=== PATIENT | male | born 1940 | race Caucasian/White ===

== ENCOUNTER 2016-06-13 09:56 | Outpatient (CLI) | payer MEDICARE, OTHER ==
[2016-06-13] MEDS ORDERED: SINCALIDE IV ONE (12:59)
[2016-06-13] MEDS ORDERED: SODIUM CHLORIDE 0.9% IV ONE (12:59)
== END 2016-06-13 09:57 | disposition home or self-care (01) ==
DX: R10.11 Right upper quadrant pain (principal)
CPT/HCPCS: 76705; 78227; A9537

== ENCOUNTER 2016-06-13 12:48 | Outpatient (CLI) | payer MEDICARE, OTHER | END 2016-06-13 12:49 | disposition home or self-care (01) | DX: R10.11 Right upper quadrant pain (principal) ==

== ENCOUNTER 2016-07-05 11:14 | Outpatient (CLI) | payer MEDICARE, OTHER | END 2016-07-05 11:15 | DX: N40.1 Benign prostatic hyperplasia with lower urinary tract symptoms (principal) ==

== ENCOUNTER 2016-08-02 12:08 | Outpatient (CLI) | payer MEDICARE, OTHER ==
[2016-08-02] MEDS ORDERED: IOPAMIDOL-300 100 ML VIAL IVP ONE (14:09)
[2016-08-02] MEDS ORDERED: IOPAMIDOL-300 50 ML VIAL PO ONE (14:09)
== END 2016-08-02 12:09 | disposition home or self-care (01) ==
DX: K63.89 Other specified diseases of intestine (principal); R59.9 Enlarged lymph nodes, unspecified
CPT/HCPCS: 36415; 74177; 82565; Q9967

== ENCOUNTER 2016-08-22 10:06 | Outpatient (CLI) | payer MEDICARE, OTHER | END 2016-08-22 10:07 | disposition home or self-care (01) | DX: K42.9 Umbilical hernia without obstruction or gangrene (principal) ==

== ENCOUNTER 2016-09-07 12:32 | Outpatient (CLI) | payer MEDICARE, OTHER ==
[2016-09-07] MEDS ORDERED: IOPAMIDOL-300 50 ML VIAL PO ONE (14:47)
[2016-09-07] MEDS ORDERED: IOPAMIDOL-300 100 ML VIAL IVP ONE (14:47)
== END 2016-09-07 12:33 | disposition home or self-care (01) ==
DX: K59.39 Other megacolon (principal); Z98.890 Other specified postprocedural states
CPT/HCPCS: 74177; Q9967

== ENCOUNTER 2016-09-27 11:49 | Inpatient (IN) | payer MEDICARE, OTHER ==
[2016-09-27] MEDS ORDERED: SODIUM CHLORIDE 0.9% 1,000 ML IV ONE (12:33)
[2016-09-27] MEDS ORDERED: SODIUM CHLORIDE 0.9% 500 ML IV ONE (12:33)
--- NOTE | 2016-09-27 12:36 | ED Physician Documentation ---
History of Present Illness - Stated complaint Stated Complaint: NEEDS FLUID - Chief complaint Chief Complaint: General - History obtained from History obtained from: Patient, Family - History of Present Illness Timing: Today (75-year-old gentleman with history of alcoholic cardiomyopathy, last known EF of 40%, about 6 months ago per , also hypertension, maintained on a few antihypertensives. A few weeks ago he developed peritonitis do to perforation and was critically ill, he was at the surgeon's office today for routine postoperative visit and was noted to be hypotensive, 96 /60 or so and was referred here for further evaluation and treatment. He says he hasn't been eating or drinking well today but otherwise has no acute changes. He specifically denies cough, abdominal pain, nausea, chest pain. When asked him if he is short of breath he has to think about it for a moment but then says no. He says he has normal output into the ostomy, it has not been particularly dark or bloody. No fevers. He does have a worse voice ever since discharge week and a half ago. Yesterday his blood pressure was normal per the family.) Review of Systems Ten Systems: 10 systems reviewed and negative Constitutional: reports: Fatigue. 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) : Benign prostate hypertrophy HEENT: None Psych: None Musculoskeletal: Osteoarthritis Derm: Other - Past Surgical History Past Surgical History: Yes General: Colonoscopy, Other Ortho: Knee replacement Cardiovascular: Cardiac catheterization HEENT: Tonsil/Adenoidectomy - Present Medications Home Medications: Ambulatory Orders Medication Instructions Recorded Confirmed Atorvastatin [Lipitor] 10 mg PO QPM 03/17/16 09/27/16 Losartan [Cozaar] 50 mg PO BID 03/17/16 09/27/16 amLODIPine [Norvasc] 5 mg PO DAILY 03/17/16 09/27/16 Carvedilol [Coreg] 3.125 mg PO BID tablet 09/06/16 09/27/16 Omeprazole 20 mg PO QDAC #30 capsule. 09/18/16 09/27/16 - Allergies Allergies/Adverse Reactions: Allergies Allergy/AdvReac Type Severity Reaction Status Date / Time No Known Drug Allergies Allergy Verified 09/27/16 12:04 - Social History Does the pt smoke?: No Smoking Status: Former smoker - Family History Family history: reports: Non contributory - POLST Patient has POLST: No POLST Status: Full Code PD ED PE NORMAL - Vitals Vital signs reviewed: Yes - General General: Alert and oriented X 3, No acute distress - HEENT HEENT: PERRL, EOMI, Moist mucous membranes, Pharynx benign - Neck Neck: Supple, no meningeal sign, No bony TTP - Cardiac Cardiac: RRR, No murmur - Respiratory Respiratory: No respiratory distress, Other (crackles right base) - Abdomen Abdomen: Soft, Non tender, Other (ileostomy with normal-appearing output) - Back Back: No CVA TTP, No spinal TTP - Derm Derm: Normal color, Warm and dry - Extremities Extremities: No edema, No calf tenderness / cord - Neuro Neuro: Alert and oriented X 3, Normal speech - Psych Psych: Normal mood, Normal affect Results - Vitals Vitals: Vital Signs - 24 hr 09/27/16 09/27/16 11:57 12:50 Temperature 36 C L Heart Rate 78 68 Respiratory 16 20 Rate Blood Pressure 89/65 L 104/68 O2 Saturation 98 99 Oxygen O2 Source [] Room air O2 Source Room air - EKG (time done) 1235 Rate: Rate (enter#) (67) Rhythm: NSR [place]: Normal Intervals: Normal DC QRS: Normal Ischemia: Non specific changes (lateral flat t waves). No: ST elevation c/w ischemia Computer interpretation: Agree with computer - Labs Labs: Laboratory Tests 09/27/16 09/27/16 09/27/16 12:29 12:29 12:29 WBC 7.4 RBC 4.05 L Hgb 13.4 L Hct 38.2 L MCV 94.1 H MCH 32.9 H MCHC 35.0 RDW 14.2 Plt Count 547 H MPV 7.3 L Neut # 5.4 Lymph # 0.9 L Roberts # 0.9 Eos # 0.1 Baso # 0.1 Absolute Nucleated RBC 0.01 Nucleated RBCs 0.1 Sodium 123 L Potassium 6.0 H* Chloride 93 L Carbon Dioxide 18 L Anion Gap 12.0 BUN 58 H Creatinine 2.3 H Estimated GFR (MDRD) 28 L Glucose 97 Lactic Acid Calcium 9.8 Magnesium 2.0 Total Bilirubin 1.1 H AST 24 ALT 34 Alkaline Phosphatase 142 H Troponin I < 0.04 Total Protein 8.5 H Albumin 3.7 Globulin 4.8 H Albumin/Globulin Ratio 0.8 L Lipase 110 H 09/27/16 12:29 WBC RBC Hgb Hct MCV MCH MCHC RDW Plt Count MPV Neut # Lymph # Roberts # Eos # Baso # Absolute Nucleated RBC Nucleated RBCs Sodium Potassium Chloride Carbon Dioxide Anion Gap BUN Creatinine Estimated GFR (MDRD) Glucose Lactic Acid 1.6 Calcium Magnesium Total Bilirubin AST ALT Alkaline Phosphatase Troponin I Total Protein Albumin Globulin Albumin/Globulin Ratio Lipase - Rads (name of study) 2v chest Radiology: EMP read contemporaneously (NAD) PD MEDICAL DECISION MAKING - ED course ED course: He presents with moderately low blood pressures from clinic, by workup the seems to be related to dehydration. His ostomy output does not seem particularly high. He is modestly hyperkalemic, but this should respond to IV fluids and rehydration. Spoke with Dr. Sweeney for admission at 130 p.m. Departure - Departure Disposition: 66 [facility] DC/[place] Clinical Impression: Hyperkalemia, Acute renal injury, Dehydration Condition: Serious
[2016-09-27 12:41] LABS: BASOPHILS # (AUTO) 0.1 10^3/uL (0.0-0.1); EOSINOPHILS # (AUTO) 0.1 10^3/uL (0.0-0.7); EOSINOPHILS % (AUTO) 1.6 %; HCT - HEMATOCRIT 38.2 % (42.0-52.0); HGB - HEMOGLOBIN 13.4 g/dL (14.0-18.0); LYMPHOCYTES # (AUTO) 0.9 10^3/uL (1.5-3.5); LYMPHOCYTES % (AUTO) 11.5 %; MEAN CORPUSCULAR HEMOGLOBIN 32.9 pg (27.0-31.0); MEAN CORPUSCULAR VOLUME 94.1 fL (80.0-94.0); MEAN PLATELET VOLUME 7.3 fL (7.4-11.4); MONOCYTES # (AUTO) 0.9 10^3/uL (0.0-1.0); MONOCYTES % (AUTO) 12.7 %; NEUTROPHILS # (AUTO) 5.4 10^3/uL (1.5-6.6); NEUTROPHILS % (AUTO) 73.2 %; NUCLEATED RED BLOOD CELLS AUTO 0.1 /100WBC; RED BLOOD COUNT 4.05 10^6/uL (4.70-6.10); RED CELL DISTRIBUTION WIDTH 14.2 % (12.0-15.0); UNCORRECTED WHITE BLOOD COUNT 7.4 x10^3/uL; WHITE BLOOD COUNT 7.4 x10^3/uL (4.8-10.8)
[2016-09-27 12:57] LABS: ALBUMIN/GLOBULIN RATIO 0.8 (1.0-2.2); BILIRUBIN,TOTAL 1.1 mg/dL (0.2-1.0); CALCIUM 9.8 mg/dL (8.5-10.3); CREATININE 2.3 mg/dL (0.6-1.2); TOTAL PROTEIN 8.5 g/dL (6.7-8.2)
--- NOTE | 2016-09-27 13:25 | XRAY Preliminary Report ---
Exam: XR Chest 2 View PA/LAT IMPRESSION: Normal 2-view chest radiography. [facility] SITE ID: [id number]
--- NOTE | 2016-09-27 13:33 | XRAY Report ---
EXAM: CHEST RADIOGRAPHY EXAM DATE: 09/27/2016 01:11 PM. CLINICAL HISTORY: Hypertension, crackles right lung base. COMPARISON: 09/09/2016. CTA chest 09/08/2016. TECHNIQUE: 2 views. FINDINGS: Lungs/Pleura: No focal opacities evident. No pleural effusion. No pneumothorax. Normal volumes. Mediastinum: Heart and mediastinal contours are unremarkable. Other: None. IMPRESSION: Normal 2-view chest radiography. [facility] Referring Provider Line: [phone] SITE ID: [id number]
[2016-09-27] MEDS ORDERED: ONDANSETRON 4 MG/2 ML VIAL IVP PRN (13:46)
[2016-09-27] MEDS ORDERED: oxyCODONE 5 MG TABLET PO PRN ×2 (13:46)
[2016-09-27] MEDS ORDERED: SODIUM CHLORIDE FLUSH 0.9% 10 ML SYRINGE IVP PRN (13:46)
[2016-09-27] MEDS ORDERED: ACETAMINOPHEN 325 MG TABLET PO PRN (13:46)
[2016-09-27] MEDS ORDERED: SODIUM CHLORIDE 0.9% 1,000 ML IV SCH (14:00)
[2016-09-27] MEDS: PANTOPRAZOLE 40 MG TABLET PO SCH (15:36)
[2016-09-27] MEDS: SODIUM CHLORIDE FLUSH 0.9% 10 ML SYRINGE IVP SCH ×2 (15:37→21:06)
[2016-09-27 15:43] LABS: BILIRUBIN,URINE NEGATIVE (NEGATIVE)
[2016-09-27 15:45] LABS: UA CHARGE (STRIP ONLY) YES; UR CULTURE IF IND NOT INDICATED
--- NOTE | 2016-09-27 16:23 | HISTORY & PHYSICAL EXAMINATION ---
DATE OF ADMISSION: 09/27/2016 CHIEF COMPLAINT: Low blood pressure. IDENTIFYING INFORMATION: The patient is the primary source of history. His , Marjorie, and daughter, Popeye wade, were present to supply some additional information, and there was also information obtained in t he hand-off from Dr. Callaway, the emergency department physician, as well as personal review of past m edical records, which are summarized below and the patient's examination. All were used in evaluation of this person and preparation of this document. HISTORY OF PRESENT ILLNESS: The patient is a 75-year-old gentleman who comes in today because he had low blood pressure noted in his followup visit with the surgeon for his recent failed hemicolectomy a nd the resultant colostomy for an SBO caused by a carcinoid tumor. The patient admits he was not eati ng or drinking much in the last 24 hours. The patient denies any pain, says his colostomy has been wo rking okay. The patient did have a prolonged course in the hospital for 10 days after surgery to get his bowels functioning well to take food. REVIEW OF SYSTEMS: The patient's complete review of systems is negative except as noted in the HPI. T he patient has had a sore throat and some hoarse voice. He has had no fever, chills, cough, or conges tion. The patient has had no problems with urination as stated above, his colostomy has been working satisfactorily. PAST MEDICAL HISTORY: 1. Congestive heart failure with cardiomyopathy, etiology alcohol. 2. Hypertension. 3. High cholesterol. 4. Colon polyps. 5. 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 6. Benign prostatic hypertrophy. 7. Osteoarthritis. PAST SURGICAL HISTORY: Colonoscopy, knee replacement, cardiac catheterization, T and A, hemicolectomy and subsequent colostomy as noted above. ALLERGIES: NONE KNOWN. MEDICATIONS: 1. Atorvastatin 10 mg a day. 2. Losartan 50 mg b.i.d.. 3. Amlodipine 5 mg daily. 4. Coreg 3.125 mg., 2 in the morning, 1 in the evening. 5. Omeprazole 20 mg a day. PERSONAL AND SOCIAL HISTORY: The patient lives with his . The patient used to smoke, quit 45 year s ago, smoked a pack a day for 10 years. The patient was a heavy drinker, quit using alcohol a year a go. FAMILY HISTORY: Positive for coronary heart disease in a daughter. PHYSICAL EXAMINATION: GENERAL: This is a chronically ill-appearing male of stated age, under-nourished, no acute distress. VITAL SIGNS: 36, 78, 16, 89/65, 98% on room air. EYES: EOMs within normal limits, PERRL, nonicteric. MOUTH AND THROAT: Somewhat dry mucous membranes, white coated tongue, even, does not appear to be thr ush. NECK: Supple. Nontender. No lymphadenopathy, no thyromegaly, no bruits heard. CHEST WALL: Nontender. Symmetric. HEART: Sinus rhythm, no murmur, rubs, clicks heard. LUNGS: Clear to auscultation with fair air movement. ABDOMEN: Soft with colostomy left upper quadrant. The patient has no tenderness, rebound. A few bowel sounds are heard. Colostomy has 300-400 ml. EXTREMITIES: No edema. VASCULAR: Normal pulses to the posterior tibial. Capillary refill intact. NEURO: Cognition intact. Motor intact. Gait was not tested. LABORATORY DATA: The patient's white count 7.4, 13 and 38 hemoglobin and hematocrit, platelets are 54 7. His sodium 123, potassium 6.0, chloride 93, CO2 is 18, BUN 58, creatinine is 2.3. The patient's gl ucose 97, calcium 9.8, magnesium 2, bilirubin is 1.1. Normal liver enzymes. Alkaline phosphatase is m ildly elevated at 142, troponin less than 0.04. Albumin is 3.7. The patient's lactic acid is 1.6. The patient's chest x-ray does not show any vascular congestion or infiltrates. EKG shows normal sinus, 67, normal ND, normal QRS, some flattening in the ST waves. SUMMARY: The patient is a 75-year-old gentleman with past medical history significant for alcoholic c ardiomyopathy, carcinoid tumor of the stomach 8 years ago status post resection, hypertension, hyperl ipidemia, osteoarthritis, left knee replacement. He had a recent diagnosis of recurrence of his carci noid tumor and had to be repaired. The patient developed a breakdown in the anastomosis and required a colostomy. The patient today was found to be hypotensive and seen in the emergency department and f ound to be hyperkalemic, hyponatremic, dehydrated, ARF on CKD and is admitted to the ICU. DIAGNOSES: 1. Hyperkalemia. 2. Hyponatremia. 3. Recurrent carcinoid. 4. Small bowel obstruction status post hemicolectomy with a second surgery requiring colostomy due to breakdown and anastomosis. 5. Hypertension. 6. Hyperlipidemia. DISCUSSION/DECISION MAKIN. The patient's hyperkalemia will be treated with stopping his losartan, getting saline, low potassi um diet, monitoring potassium. 2. Hyponatremia will be treated with saline, oral fluids and recheck of his sodium. 3. The patient's carcinoid tumor will not be addressed directly at this time. 4. Colostomy, which will be maintained and monitored. 5. Hypertension, presently blood pressures is 120. Will be monitored, and medications will be restart ed on home medicines specifically his carvedilol. 6. The patient's hyperlipidemia will be controlled with his statin, atorvastatin has been use at home . HOSPITAL ISSUES: 1. CODE STATUS: HE IS FULL CODE. 2. Deep venous thrombosis prophylaxis, which will be reduced dose of Lovenox. 3. Diet will be low potassium. 4. Activity which will be with assistance, up in a chair, walking with a walker. 5. Tubes and Lines: He will have a peripheral IV at this time. 6. Hospital Status: The patient is inpatient 2 nights expected in order to determine what other inter ventions diagnostic and therapeutic will be needed to assure safe discharge from the patient's acute problems with his comorbidities. 7. Estimated length of stay, which is 2 nights. 8. Disposition, which is expected to return home. JOB #: [id number] EXT JOB #:[id number]
[2016-09-27] MEDS ORDERED: ATORVASTATIN 10 MG TABLET PO SCH (21:00)
[2016-09-27 22:26] LABS: CALCIUM 9.1 mg/dL (8.5-10.3); CREATININE 1.9 mg/dL (0.6-1.2); POTASSIUM 5.2 mmol/L (3.5-5.0)
[2016-09-28 05:54] LABS: BASOPHILS % (AUTO) 0.9 %; EOSINOPHILS # (AUTO) 0.2 10^3/uL (0.0-0.7); HCT - HEMATOCRIT 36.5 % (42.0-52.0); HGB - HEMOGLOBIN 12.2 g/dL (14.0-18.0); LYMPHOCYTES % (AUTO) 17.5 %; MEAN CORPUSCULAR HEMOGLOBIN 31.7 pg (27.0-31.0); MEAN CORPUSCULAR HGB CONC 33.4 g/dL (32.0-36.0); MEAN CORPUSCULAR VOLUME 94.7 fL (80.0-94.0); MEAN PLATELET VOLUME 7.6 fL (7.4-11.4); MONOCYTES # (AUTO) 0.8 10^3/uL (0.0-1.0); MONOCYTES % (AUTO) 14.3 %; NEUTROPHILS # (AUTO) 3.6 10^3/uL (1.5-6.6); NEUTROPHILS % (AUTO) 63.3 %; RED BLOOD COUNT 3.86 10^6/uL (4.70-6.10); RED CELL DISTRIBUTION WIDTH 14.2 % (12.0-15.0); UNCORRECTED WHITE BLOOD COUNT 5.6 x10^3/uL; WHITE BLOOD COUNT 5.6 x10^3/uL (4.8-10.8)
[2016-09-28 06:06] LABS: ALBUMIN/GLOBULIN RATIO 0.8 (1.0-2.2); BILIRUBIN,TOTAL 0.9 mg/dL (0.2-1.0); CALCIUM 9.2 mg/dL (8.5-10.3); CREATININE 1.4 mg/dL (0.6-1.2); POTASSIUM 5.1 mmol/L (3.5-5.0); TOTAL PROTEIN 6.8 g/dL (6.7-8.2)
[2016-09-28] MEDS: SODIUM CHLORIDE FLUSH 0.9% 10 ML SYRINGE IVP SCH (06:28)
[2016-09-28] MEDS: PANTOPRAZOLE 40 MG TABLET PO SCH (06:28)
--- NOTE | 2016-09-28 07:48 | Discharge Plan ---
Discharge Plan Disposition: 01 Home, Self Care Condition: Good Diet: Cardiac Activity Restrictions: Activity as Tolerated Shower Restrictions: No Driving Restrictions: No Weight Bearing: Full Weight Additional Instructions or Follow Up instructions: Please make an appt with Fernando Tolentino for followup in the next 7-10 days. Have a chem panel (blood draw) done there before your appt. Note that you will not be taking your losartan at this time. Also you will reduce your carvidilol to just in the evening. also follow a low poassium diet until you see Fernando Tolentino in the next week. Thank you Dr. Sweeney No Smoking: If you smoke, Please STOP! Call for help. Follow-up with: Fernando Tolentino PA-C [Primary Care Provider] - 1 Week
[2016-09-28] MEDS ORDERED: ENOXAPARIN 40 MG/0.4 ML SYRINGE SUBQ SCH (09:00)
[2016-09-28 09:49] VITALS: BP 125/73
--- NOTE | 2016-09-28 13:46 | DISCHARGE SUMMARY ---
DATE OF ADMISSION: 09/27/2016 DATE OF DISCHARGE: 09/28/2016 PRIMARY CARE PHYSICIAN: Fernando Tolentino. ADMISSION DIAGNOSES 1. Hyperkalemia. 2. Hyponatremia. 3. Recurrent carcinoid. 4. Small bowel obstruction, status post hemicolectomy with second surgery requiring colostomy due to breakdown and anastomosis. 5. Hypertension. 6. Hyperlipidemia. DISCHARGE DIAGNOSES 1. Hyperkalemia with marked improvement. 2. Hyponatremia with improvement. 3. Recurrent carcinoid. 4. Small bowel obstruction, status post hemicolectomy with second surgery requiring colostomy due to breakdown and anastomosis. 5. Hypertension, with good control. 6. Hyperlipidemia, on statin. CONSULTATIONS: None. SPECIAL PROCEDURES: None. HOSPITAL COURSE AND MANAGEMENT: Initial presentation and the patient's emergency department evaluation, as well as the hospitalist plan are well described in the history and physical, see copy of same. 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 He had a recent diagnosis of recurrence of his carcinoid tumor and had to be resected. The patient developed breakdown in anastomosis and required a colostomy. The patient today was found to be hypotensive, seen in the emergency department and found to be hyperkalemic, hyponatremic, dehydrated with ARF on CKD and admitted to the ICU. The patient's Losartan, potassium sparing antihypertensive was discontinued, as were his other medications because of him having a low blood pressure on admission. The patient improved overnight in all parameters. The patient was eating breakfast in a chair and then was ambulating with a cane and had made a remarkable recovery. Therefore, discharged home. PHYSICAL EXAMINATION ON THE DAY OF DISCHARGE GENERAL: This is an elderly male, frail, appearing older than stated age, no acute distress. VITAL SIGNS: 36.3, 72, 125/73, 12, 99 on room air. EYES: EOM within normal limits, PERRL, nonicteric. MOUTH AND THROAT: Moist mucous membranes. No other pathology noted. NECK: Supple. Nontender. No lymphadenopathy. CHEST: Normal sinus rhythm. No murmur, rubs, clicks. LUNGS: Clear, good air movement. ABDOMEN: Soft, nontender. There is output in the colostomy. VASCULAR: No lower extremity edema. Pulses 1+ posterior tibial bilaterally. SKIN: No suspicious lesions, dermatitis. NEUROLOGIC: Cognition intact. Cranial nerves intact. Motor normal. LABORATORY DATA: The patient has a sodium of 129, potassium 5.1, chloride 103, CO2 is 17. The patient's BUN is 48, creatinine is 1.4, glucose is 90, calcium 9.2. His white count is 5.6, 12 and 36 hemoglobin and hematocrit, with platelets of 464. The patient had a cortisol level because of the abnormal Na and KCL, which was normal at 20. The LFTs were normal. The patient's creatinine , it should be noted went from 2.3 to 1.4, and BUN went from 58 to 48 overnight. DISCHARGE ALLERGIES: NO KNOWN ALLERGIES. MEDICATIONS 1. He is to take carvedilol just 3.125 at night. 2. Atorvastatin 10 mg at night. 3. Amlodipine 5 mg a day. 4. Omeprazole 20 mg a day. 5. He is to stop his Cozaar. The patient is to see Freda Riley in the next week and have a chemistry panel done at that time and adjust his blood pressure medicines, which he said he was on higher doses and made him feel bad. He was told that his medicines are not just for blood pressure, but also to strengthen the heart since he had heart failure and cardiomyopathy. However, given the patient's symptomatology, an attempt to use medicines with a "go low go slow "approach would be warranted, herego the reduction of the carvedilol to 3.125 q.p.m., to be slowly increased if needed and to use an MODE or ARB to minimize potassium retention, yet get the benefits of cardiac improvement. Time spent in discharge activity is less than 30 minutes and he was examined on the day of discharge as noted above. JOB #: [id number] EXT JOB #:[id number] KATT
== END 2016-09-28 11:22 | disposition home or self-care (01) | DRG 641 ==
LOC: ED 11:49 → ICU 13:46
PROVIDERS: ADMIT Internal Medicine; ATTEND Internal Medicine
DX: E87.5 Hyperkalemia (principal); I42.6 Alcoholic cardiomyopathy; I13.0 Hypertensive heart and chronic kidney disease with heart failure and stage 1 through stage 4 chronic kidney disease, or unspecified chronic kidney disease; N17.9 Acute kidney failure, unspecified; K91.2 Postsurgical malabsorption, not elsewhere classified; E87.1 Hypo-osmolality and hyponatremia; E78.00 Pure hypercholesterolemia, unspecified; E86.0 Dehydration; N18.9 Chronic kidney disease, unspecified; I50.9 Heart failure, unspecified; D49.0 Neoplasm of unspecified behavior of digestive system; E78.5 Hyperlipidemia, unspecified; M19.90 Unspecified osteoarthritis, unspecified site; Z96.652 Presence of left artificial knee joint; N40.0 Benign prostatic hyperplasia without lower urinary tract symptoms; Z93.3 Colostomy status; Z79.899 Other long term (current) drug therapy; Z87.891 Personal history of nicotine dependence; Z90.3 Acquired absence of stomach [part of]; Z90.49 Acquired absence of other specified parts of digestive tract; Z86.010 Personal history of colon polyps; Z87.898 Personal history of other specified conditions
CPT/HCPCS: 36415; 71020; 80048; 80053; 81001; 81003; 82533; 83605; 83690; 83735; 84132; 84484; 85025; 87086; 87150; 93005; 93010; 96360; 99284; 99285

== ENCOUNTER 2016-10-04 14:36 | Outpatient (CLI) | payer MEDICARE, OTHER ==
[2016-10-04 19:16] LABS: BILIRUBIN,TOTAL 0.5 mg/dL (0.2-1.0); CALCIUM 9.5 mg/dL (8.5-10.3); CREATININE 1.5 mg/dL (0.6-1.2); POTASSIUM 5.5 mmol/L (3.5-5.0)
== END 2016-10-04 14:37 | disposition home or self-care (01) ==
LOC: LAB.N 14:36
PROVIDERS: ATTEND Physician Assistant
DX: E87.1 Hypo-osmolality and hyponatremia (principal); E87.5 Hyperkalemia
CPT/HCPCS: 36415; 80053

== ENCOUNTER 2016-10-10 11:14 | Outpatient (CLI) | payer MEDICARE, OTHER ==
[2016-10-10 13:03] LABS: ALBUMIN/GLOBULIN RATIO 1.1 (1.0-2.2); BILIRUBIN,TOTAL 0.7 mg/dL (0.2-1.0); CALCIUM 9.7 mg/dL (8.5-10.3); CREATININE 1.3 mg/dL (0.6-1.2); POTASSIUM 4.6 mmol/L (3.5-5.0); TOTAL PROTEIN 7.8 g/dL (6.7-8.2)
== END 2016-10-10 11:15 | disposition home or self-care (01) ==
LOC: LAB.N 11:14
PROVIDERS: ATTEND Physician Assistant
DX: E87.1 Hypo-osmolality and hyponatremia (principal); E87.5 Hyperkalemia
CPT/HCPCS: 36415; 80053

== ENCOUNTER 2016-10-17 09:25 | Outpatient (CLI) | payer MEDICARE, OTHER ==
[2016-10-17 14:03] LABS: ALBUMIN/GLOBULIN RATIO 1.1 (1.0-2.2); BILIRUBIN,TOTAL 0.6 mg/dL (0.2-1.0); CALCIUM 9.7 mg/dL (8.5-10.3); CREATININE 1.1 mg/dL (0.6-1.2); POTASSIUM 4.4 mmol/L (3.5-5.0); TOTAL PROTEIN 7.6 g/dL (6.7-8.2)
== END 2016-10-17 09:26 | disposition home or self-care (01) ==
LOC: LAB.N 09:25
PROVIDERS: ATTEND Physician Assistant
DX: E87.1 Hypo-osmolality and hyponatremia (principal)
CPT/HCPCS: 36415; 80053

== ENCOUNTER 2016-10-24 14:22 | Outpatient (CLI) | payer MEDICARE, OTHER ==
[2016-10-24 19:16] LABS: BILIRUBIN,TOTAL 0.2 mg/dL (0.2-1.0); CALCIUM 9.6 mg/dL (8.5-10.3); CREATININE 1.3 mg/dL (0.6-1.2); TOTAL PROTEIN 7.5 g/dL (6.7-8.2)
== END 2016-10-24 23:59 | disposition home or self-care (01) ==
LOC: LAB.N 14:22
PROVIDERS: ATTEND Physician Assistant
DX: E87.1 Hypo-osmolality and hyponatremia (principal)
CPT/HCPCS: 36415; 80053

== ENCOUNTER 2016-11-01 10:52 | Outpatient (CLI) | payer MEDICARE, OTHER ==
[2016-11-01 13:20] LABS: ALBUMIN/GLOBULIN RATIO 0.9 (1.0-2.2); BILIRUBIN,TOTAL 0.7 mg/dL (0.2-1.0); CALCIUM 9.8 mg/dL (8.5-10.3); CREATININE 1.5 mg/dL (0.6-1.2); POTASSIUM 4.8 mmol/L (3.5-5.0); TOTAL PROTEIN 8.1 g/dL (6.7-8.2)
== END 2016-11-01 10:53 | disposition home or self-care (01) ==
LOC: LAB.N 10:52
PROVIDERS: ATTEND Physician Assistant
DX: E87.1 Hypo-osmolality and hyponatremia (principal)
CPT/HCPCS: 36415; 80053

== ENCOUNTER 2016-11-08 11:46 | Outpatient (CLI) | payer MEDICARE, OTHER ==
[2016-11-08 19:18] LABS: BILIRUBIN,TOTAL 0.6 mg/dL (0.2-1.0); CALCIUM 9.8 mg/dL (8.5-10.3); CREATININE 1.3 mg/dL (0.6-1.2); POTASSIUM 4.6 mmol/L (3.5-5.0); TOTAL PROTEIN 7.9 g/dL (6.7-8.2)
== END 2016-11-08 11:47 | disposition home or self-care (01) ==
LOC: LAB.N 11:46
PROVIDERS: ATTEND Physician Assistant
DX: E87.1 Hypo-osmolality and hyponatremia (principal)
CPT/HCPCS: 36415; 80053

== ENCOUNTER 2016-11-14 11:05 | Outpatient (CLI) | payer MEDICARE, OTHER | END 2016-11-14 11:06 | disposition home or self-care (01) | DX: E87.1 Hypo-osmolality and hyponatremia (principal) ==

== ENCOUNTER 2016-11-14 14:23 | Outpatient (CLI) | payer MEDICARE, OTHER ==
--- NOTE | 2016-11-15 09:26 | XRAY Report ---
TWO-VIEW CHEST: 11/14/2016 CLINICAL INDICATION: Generalized lymphadenopathy. COMPARISON: 11/06/2016, chest CT 09/08/2016 FINDINGS: Frontal and lateral views of the chest demonstrate a normal cardiac silhouette. No defini te hilar or mediastinal lymphadenopathy is appreciated. The lungs again demonstrate minimal scattere d nodularity. No focal infiltrate, effusion, or pneumothorax. IMPRESSION: NO EVIDENCE OF THORACIC ADENOPATHY. MINIMAL SCATTERED NODULARITY IN THE LUNGS, NOT SIGN IFICANTLY CHANGED. :9 JOB #: [id number] EXT JOB #:[id number]
== END 2016-11-14 14:24 | disposition home or self-care (01) ==
LOC: DI.N 14:23
PROVIDERS: ATTEND Physician Assistant
DX: Z00.00 Encounter for general adult medical examination without abnormal findings (principal); R91.8 Other nonspecific abnormal finding of lung field; E87.1 Hypo-osmolality and hyponatremia
CPT/HCPCS: 36415; 71020; 80053

== ENCOUNTER 2016-11-22 10:29 | Outpatient (CLI) | payer MEDICARE, OTHER ==
[2016-11-22 13:40] LABS: ALBUMIN/GLOBULIN RATIO 1.1 (1.0-2.2); BILIRUBIN,TOTAL 0.6 mg/dL (0.2-1.0); CALCIUM 9.3 mg/dL (8.5-10.3); CREATININE 1.8 mg/dL (0.6-1.2); POTASSIUM 3.2 mmol/L (3.5-5.0); TOTAL PROTEIN 7.3 g/dL (6.7-8.2)
== END 2016-11-22 10:30 | disposition home or self-care (01) ==
LOC: LAB.N 10:29
PROVIDERS: ATTEND Physician Assistant
DX: E87.1 Hypo-osmolality and hyponatremia (principal)
CPT/HCPCS: 36415; 80053

== ENCOUNTER 2016-11-29 09:36 | Outpatient (CLI) | payer MEDICARE, OTHER ==
[2016-11-29 13:40] LABS: ALBUMIN/GLOBULIN RATIO 1.1 (1.0-2.2); BILIRUBIN,TOTAL 0.5 mg/dL (0.2-1.0); CALCIUM 9.3 mg/dL (8.5-10.3); CREATININE 1.7 mg/dL (0.6-1.2); POTASSIUM 3.7 mmol/L (3.5-5.0); TOTAL PROTEIN 6.8 g/dL (6.7-8.2)
== END 2016-11-29 09:37 ==
LOC: LAB.N 09:36
PROVIDERS: ATTEND Physician Assistant
DX: E87.1 Hypo-osmolality and hyponatremia (principal); E87.5 Hyperkalemia
CPT/HCPCS: 36415; 80053

== ENCOUNTER 2016-12-06 11:45 | Outpatient (CLI) | payer MEDICARE, OTHER ==
[2016-12-06 19:32] LABS: ALBUMIN/GLOBULIN RATIO 1.2 (1.0-2.2); BILIRUBIN,TOTAL 0.4 mg/dL (0.2-1.0); CALCIUM 9.5 mg/dL (8.5-10.3); CREATININE 1.8 mg/dL (0.6-1.2); POTASSIUM 4.4 mmol/L (3.5-5.0); TOTAL PROTEIN 7.3 g/dL (6.7-8.2)
== END 2016-12-06 11:46 | disposition home or self-care (01) ==
LOC: LAB.N 11:45
PROVIDERS: ATTEND Physician Assistant
DX: E87.1 Hypo-osmolality and hyponatremia (principal); E87.5 Hyperkalemia
CPT/HCPCS: 36415; 80053

== ENCOUNTER 2016-12-20 12:59 | Outpatient (CLI) | payer MEDICARE, OTHER ==
[2016-12-20 19:52] LABS: ALBUMIN/GLOBULIN RATIO 1.3 (1.0-2.2); BILIRUBIN,TOTAL 0.4 mg/dL (0.2-1.0); CALCIUM 9.2 mg/dL (8.5-10.3); CREATININE 1.6 mg/dL (0.6-1.2); POTASSIUM 4.4 mmol/L (3.5-5.0); TOTAL PROTEIN 7.2 g/dL (6.7-8.2)
== END 2016-12-20 13:00 | disposition home or self-care (01) ==
LOC: LAB.N 12:59
PROVIDERS: ATTEND Physician Assistant
DX: E87.1 Hypo-osmolality and hyponatremia (principal)
CPT/HCPCS: 36415; 80053

== ENCOUNTER 2016-12-27 15:45 | Outpatient (CLI) | payer MEDICARE, OTHER | END 2016-12-27 16:00 | disposition home or self-care (01) | LOC: RT.N 15:45 | PROVIDERS: ATTEND Physician Assistant | DX: R07.9 Chest pain, unspecified (principal) | CPT/HCPCS: 93005 ==

== ENCOUNTER 2016-12-28 08:48 | Outpatient (CLI) | payer MEDICARE, OTHER ==
[2016-12-28 13:32] LABS: ALBUMIN/GLOBULIN RATIO 1.2 (1.0-2.2); BILIRUBIN,TOTAL 0.6 mg/dL (0.2-1.0); CALCIUM 9.4 mg/dL (8.5-10.3); CREATININE 1.8 mg/dL (0.6-1.2); POTASSIUM 4.2 mmol/L (3.5-5.0); TOTAL PROTEIN 7.3 g/dL (6.7-8.2)
== END 2016-12-28 08:49 | disposition home or self-care (01) ==
LOC: LAB.N 08:48
PROVIDERS: ATTEND Physician Assistant
DX: R07.9 Chest pain, unspecified (principal); E87.1 Hypo-osmolality and hyponatremia
CPT/HCPCS: 36415; 80053; 84484

== ENCOUNTER 2017-01-02 16:56 | Outpatient (CLI) | payer MEDICARE, OTHER | END 2017-01-02 16:57 | disposition short-term general hospital (02) | LOC: EMS 16:56 | PROVIDERS: ATTEND Surgery | DX: R55 Syncope and collapse (principal); R09.89 Other specified symptoms and signs involving the circulatory and respiratory systems | CPT/HCPCS: A0425; A0427 ==

== ENCOUNTER 2017-01-10 09:38 | Outpatient (CLI) | payer MEDICARE, OTHER ==
[2017-01-10 14:07] LABS: ALBUMIN/GLOBULIN RATIO 1.2 (1.0-2.2); BILIRUBIN,TOTAL 0.5 mg/dL (0.2-1.0); CALCIUM 9.5 mg/dL (8.5-10.3); CREATININE 1.8 mg/dL (0.6-1.2); POTASSIUM 4.5 mmol/L (3.5-5.0); TOTAL PROTEIN 7.2 g/dL (6.7-8.2)
== END 2017-01-10 09:39 ==
LOC: LAB.N 09:38
PROVIDERS: ATTEND Physician Assistant
DX: E87.1 Hypo-osmolality and hyponatremia (principal); E87.5 Hyperkalemia
CPT/HCPCS: 36415; 80053

== ENCOUNTER 2017-01-17 13:32 | Outpatient (CLI) | payer MEDICARE, OTHER ==
[2017-01-17 19:15] LABS: CALCIUM 9.3 mg/dL (8.5-10.3); CREATININE 2.2 mg/dL (0.6-1.2); POTASSIUM 4.3 mmol/L (3.5-5.0)
== END 2017-01-17 13:33 | disposition home or self-care (01) ==
LOC: LAB.N 13:32
PROVIDERS: ATTEND Family Medicine
DX: E87.1 Hypo-osmolality and hyponatremia (principal)
CPT/HCPCS: 36415; 80048

== ENCOUNTER 2017-01-25 11:29 | Outpatient (CLI) | payer MEDICARE, OTHER ==
[2017-01-25 19:46] LABS: CALCIUM 9.3 mg/dL (8.5-10.3); CREATININE 2.2 mg/dL (0.6-1.2); POTASSIUM 3.8 mmol/L (3.5-5.0)
== END 2017-01-25 11:30 | disposition home or self-care (01) ==
LOC: LAB.N 11:29
PROVIDERS: ATTEND Family Medicine
DX: E87.1 Hypo-osmolality and hyponatremia (principal)
CPT/HCPCS: 36415; 80048

== ENCOUNTER 2017-02-20 08:28 | Outpatient (CLI) | payer MEDICARE, OTHER ==
[~2017-02-20 08:28] MED LIST: IOPAMIDOL-300 100 ML VIAL ONE; IOPAMIDOL-300 50 ML VIAL ONE
--- NOTE | 2017-02-20 17:54 | CT Report ---
CT ABDOMEN AND PELVIS WITHOUT CONTRAST: 02/20/2017 CLINICAL INDICATION: History of carcinoid tumor, followup. Axial CT images of the abdomen and pelvis were obtained with oral contrast only, due to patient's shannon al dysfunction. In accordance with CT protocol optimization, one or more of the following dose reduction techniques w ere utilized for this exam: automated exposure control, adjustment of mA and/or KV based on patient size, or use of iterative reconstructive technique. COMPARISON: 09/07/2016 Limited evaluation of the lung bases demonstrates emphysema. The liver, spleen, pancreas, kidneys, and adrenal glands appear unremarkable. The gallbladder is not dilated. No bowel dilatation, free gas, or free fluid is present. No abdominal adenopathy is seen. There is a new ostomy in the right lower quadrant. Colonic diverticulosis is noted, without CT evide nce of diverticulitis. No pelvic adenopathy or free fluid is present. Osseous structures demonstrate degenerative changes. IMPRESSION: NEW RIGHT LOWER QUADRANT OSTOMY. NO EVIDENCE OF SMALL BOWEL DILATATION. EMPHYSEMA. NO EVIDENCE OF METASTATIC DISEASE. JOB #: [id number] EXT JOB #:[id number]
[2017-02-20] MEDS ORDERED: IOPAMIDOL-300 50 ML VIAL PO ONE (18:06)
== END 2017-02-20 08:29 | disposition home or self-care (01) ==
LOC: DI 08:28
PROVIDERS: ATTEND Surgery
DX: Z85.060 Personal history of malignant carcinoid tumor of small intestine (principal); J43.9 Emphysema, unspecified
CPT/HCPCS: 36415; 74176; 82565; Q9967

== ENCOUNTER 2017-02-27 10:16 | Outpatient (CLI) | payer MEDICARE, OTHER ==
[2017-02-27 10:45] LABS: BASOPHILS % (AUTO) 0.7 %; EOSINOPHILS # (AUTO) 0.1 10^3/uL (0.0-0.7); EOSINOPHILS % (AUTO) 1.4 %; HCT - HEMATOCRIT 35.6 % (42.0-52.0); LYMPHOCYTES # (AUTO) 0.8 10^3/uL (1.5-3.5); LYMPHOCYTES % (AUTO) 12.9 %; MEAN CORPUSCULAR HEMOGLOBIN 33.2 pg (27.0-31.0); MEAN CORPUSCULAR HGB CONC 33.8 g/dL (32.0-36.0); MEAN CORPUSCULAR VOLUME 98.3 fL (80.0-94.0); MEAN PLATELET VOLUME 6.4 fL (7.4-11.4); MONOCYTES # (AUTO) 0.7 10^3/uL (0.0-1.0); MONOCYTES % (AUTO) 10.5 %; NEUTROPHILS # (AUTO) 4.7 10^3/uL (1.5-6.6); NEUTROPHILS % (AUTO) 74.5 %; RED BLOOD COUNT 3.62 10^6/uL (4.70-6.10); RED CELL DISTRIBUTION WIDTH 15.1 % (12.0-15.0); UNCORRECTED WHITE BLOOD COUNT 6.3 x10^3/uL; WHITE BLOOD COUNT 6.3 x10^3/uL (4.8-10.8)
[2017-02-27 10:54] LABS: ALBUMIN/GLOBULIN RATIO 1.4 (1.0-2.2); BILIRUBIN,TOTAL 0.5 mg/dL (0.2-1.0); CALCIUM 9.3 mg/dL (8.5-10.3); CREATININE 2.1 mg/dL (0.6-1.2); POTASSIUM 4.3 mmol/L (3.5-5.0); TOTAL PROTEIN 7.3 g/dL (6.7-8.2)
== END 2017-02-27 10:17 | disposition home or self-care (01) ==
LOC: LAB 10:16
PROVIDERS: ATTEND Nurse Anesthetist, Certified Registered
DX: Z01.818 Encounter for other preprocedural examination (principal); Z93.2 Ileostomy status; Z79.899 Other long term (current) drug therapy
CPT/HCPCS: 36415; 80053; 85025; 93005

== ENCOUNTER 2017-03-13 08:26 | Inpatient (IN) | payer MEDICARE, OTHER ==
[2017-03-13] MEDS ORDERED: LACTATED RINGERS 1,000 ML IV ONE ×2 (08:44→11:00)
[2017-03-13] MEDS ORDERED: cefOXitin 2 GM in SODIUM CHLORIDE 0.9% MINIBAG 100 ML IV ONE (09:00)
[2017-03-13] MEDS ORDERED: BUPIVACAINE 0.5% PF 30 ML VIAL SUBQ ONE (11:56)
[2017-03-13] MEDS ORDERED: SUCCINYLCHOLINE 200 MG/10 ML VIAL IVP ONE (12:00)
[2017-03-13] MEDS ORDERED: NEOSTIGMINE 1 MG/1 ML 10 ML MDV IVP ONE (12:00)
[2017-03-13] MEDS ORDERED: GLYCOPYRROLATE 1 MG/5 ML VIAL IVP ONE (12:00)
[2017-03-13] MEDS ORDERED: ePHEDrine 50 MG/ML VIAL IVP ONE (12:00)
[2017-03-13] MEDS ORDERED: ROCURONIUM 50 MG/5 ML VIAL IVP ONE (12:00)
[2017-03-13] MEDS ORDERED: PROPOFOL 200 MG/20 ML VIAL IVP ONE (12:00)
[2017-03-13] MEDS ORDERED: MIDAZOLAM 2 MG/2 ML VIAL IVP ONE (12:00)
[2017-03-13] MEDS ORDERED: DEXAMETHASONE 4 MG/ML VIAL IVP ONE (12:00)
[2017-03-13] MEDS ORDERED: LIDOCAINE-MPF 2% 5 ML VIAL IM ONE (12:00)
[2017-03-13] MEDS ORDERED: PHENYLEPHRINE 50 MG/5 ML VIAL IV ONE (12:00)
[2017-03-13] MEDS ORDERED: ONDANSETRON 4 MG/2 ML VIAL IVP ONE (12:00)
[2017-03-13] MEDS ORDERED: fentaNYL 100 MCG/2 ML VIAL IVP ONE (12:00)
[2017-03-13] MEDS ORDERED: PHENOL THROAT SPRAY 177 ML MM PRN (12:40)
[2017-03-13] MEDS ORDERED: PROCHLORPERAZINE 10 MG/2 ML VIAL IVP PRN (12:40)
--- NOTE | 2017-03-13 13:01 | OPERATIVE REPORT ---
Operative Report - General Admit Date: 03/13/17 Procedure Date: 03/13/17 Planned Procedure: SILS ileostomy takedown Pre-Op Diagnosis: Ileostomy Procedure Performed: SILS ileostomy takedown Post Op Diagnosis: Ileostomy - Procedure Note Primary Surgeon: Parag Cantu MD Secondary Surgeon: Brando Borges MD Anesthesia Provider: Stephen Amador Anesthesia Technique: General ET tube, Local (30 mL 1/2% marcaine) IV Fluids (mL): 1,800 Estimated Blood Loss (mL): 50 Urine Output (mL): 150 Complications: None. - Other Other Information/Narrative: OPERATIVE DESCRIPTION/REPORT: After verbal and written informed consent was obtained detailing the risks of infection, bleeding with all of its risks including transfusion, and the patient was brought to the operative suite and placed initially in the supine position on the operating room table taking care to pad all extremities. Monitoring devices were applied along with TEDs and pneumatic compressive stockings. The ileostomy was sutured closed. Care was taken to avoid pressure points. Prophylactic antibiotics were given. An adequate level of general endotracheal anesthesia was established by Stephen Amador. The abdomen was then prepped with ChloraPrep and draped in a sterile fashion. A "time in" then confirmed that the patient was identified with 3 identifiers (name, date and medical record number), the history and physical was in the chart, the signed consent confirming the procedure was in the chart, the patient was in the correct position, the aforementioned prophylactic measures were in place or given, we had the correct personnel and equipment to complete the procedure and that anesthesia, surgery and nursing were given an opportunity to express any concerns. An elliptical incision was made encompassing the terminal ileum and dissection down to the ileostomy and the fascia was completed using Bovie electrocautery. Subcutaneous adhesions were taken again using Bovie electrocautery until the fascia was clearly identified around the ileum. Adhesions of the ileum to the fascia were similarly taken using Bovie electrocautery until I was able to enter the abdomen proper. Intraloop adhesions and adhesions to the anterior abdominal wall were taken down using Bovie electrocautery. This was done until I was able to place the GelPort in position without the ring impinging on any bowel. The ileostomy was excised using an application of the 75 JEANIE stapler to prevent from putting the old ileostomy into the abdomen. Two 5 mm ports and one 10 mm port were placed in the Gelport in a triangular fashion, and the Gelport was attached to the ring. The abdominal cavity was insufflated with carbon dioxide to steady-state pressure of 12 mmHg. At this point, the patient was placed in reverse Trendeleberg position with the left lateral decubitus tilt. Adhesiolysis was performed laparoscopically and the Gardner's pouch was found. This was aided by the placement of Prolene stitches previously. The colon was freed enough that it could be brought up in to the GelPort. Once I was satisfied that the colon could be anastamosed without any tension the terminal ileum as well as the colon were brought up through the opening in the GelPort ring. 2 2-0 Vicryl sutures were placed in the antimesenteric border of the ileum and colon to line up the anastomosis. The staple line of the ileum and the colon were then cut with heavy scissors and a 75 JEANIE stapler was placed through each opening, applied, and fired this creating the ileocolostomy. The stapler was removed and reloaded. The combined opening that the stapler had been removed from was then closed using 2 other applications of the JEANIE stapler. The staple line was then oversewn using 3-0 Vicryl sutures in a Lembert fashion. The anastamosis was visually checked for a leak and there was none. The anastomosis was palpated and noted to be widely patent. There was no bleeding noted. The abdomen was copiously irrigated with 1 L of warm sterile saline. The Gelport was removed and the posterior fascia and peritoneum were closed using a running looped 0 PDS. The anterior fascia was used using a running 0 PDS suture. The peritoneal, fascial and skin levels were injected with 1/2% Marcaine under direct vision. Meticulous hemostasis was obtained using Bovie electrocautery. The subcutaneous tissues were approximated using interrupted 0 Vicryl sutures. The skin incision was approximated with interrupted mattress 3- 0 Prolene sutures. At this point a time out was performed that confirmed that all the counts were correct, the procedure that was performed, the blood loss, the IV fluids administered, and the patients condition. The prep was washed off and Benzoin and steristrips were applied. Having tolerated the procedure well, the patient was subsequently extubated and taken to recovery room in good and stable condition.
[2017-03-13] MEDS ORDERED: fentaNYL 100 MCG/2 ML VIAL ONE (13:33)
[2017-03-13] MEDS: SODIUM CHLORIDE FLUSH 0.9% 10 ML SYRINGE IVP SCH ×2 (13:40→21:30)
[2017-03-13] MEDS: D5NS W/20 MEQ KCL 1,000 ML IV SCH (13:59)
[2017-03-13] MEDS: ACETAMINOPHEN 1,000 MG/100 ML 100 ML IV SCH ×2 (14:00→19:00)
[2017-03-13] MEDS: HYDROmorphone 0.5 MG/0.5 ML SYRINGE IVP PRN (14:02)
[2017-03-13] MEDS ORDERED: PIPERACILLIN/TAZOBACTAM 3.375 GM in SODIUM CHLORIDE 0.9% MINIBAG 100 ML IV SCH (15:00)
[2017-03-13] MEDS: METOPROLOL SUCCINATE 25 MG TABLET PO SCH (21:29)
[2017-03-14] MEDS: ACETAMINOPHEN 1,000 MG/100 ML 100 ML IV SCH ×4 (00:19→18:33)
[2017-03-14 05:11] LABS: BASOPHILS % (AUTO) 0.1 %; HCT - HEMATOCRIT 31.4 % (42.0-52.0); HGB - HEMOGLOBIN 10.5 g/dL (14.0-18.0); LYMPHOCYTES # (AUTO) 0.4 10^3/uL (1.5-3.5); LYMPHOCYTES % (AUTO) 2.8 %; MEAN CORPUSCULAR HEMOGLOBIN 33.7 pg (27.0-31.0); MEAN CORPUSCULAR HGB CONC 33.6 g/dL (32.0-36.0); MEAN CORPUSCULAR VOLUME 100.5 fL (80.0-94.0); MONOCYTES # (AUTO) 1.3 10^3/uL (0.0-1.0); MONOCYTES % (AUTO) 9.5 %; NEUTROPHILS # (AUTO) 11.8 10^3/uL (1.5-6.6); NEUTROPHILS % (AUTO) 87.6 %; RED BLOOD COUNT 3.13 10^6/uL (4.70-6.10); UNCORRECTED WHITE BLOOD COUNT 13.5 x10^3/uL; WHITE BLOOD COUNT 13.5 x10^3/uL (4.8-10.8)
[2017-03-14 05:24] LABS: ALBUMIN/GLOBULIN RATIO 1.1 (1.0-2.2); BILIRUBIN,TOTAL 0.6 mg/dL (0.2-1.0); CALCIUM 8.5 mg/dL (8.5-10.3); POTASSIUM 4.6 mmol/L (3.5-5.0)
[2017-03-14] MEDS: SODIUM CHLORIDE FLUSH 0.9% 10 ML SYRINGE IVP SCH ×3 (07:00→20:36)
[2017-03-14] MEDS: PANTOPRAZOLE 40 MG VIAL IVP SCH (07:00)
[2017-03-14] MEDS: METOPROLOL SUCCINATE 25 MG TABLET PO SCH ×2 (08:56→20:39)
[2017-03-14] MEDS: AMIODARONE 200 MG TABLET PO SCH (09:19)
[2017-03-14] MEDS: ENOXAPARIN 40 MG/0.4 ML SYRINGE SUBQ SCH (09:19)
[2017-03-14] MEDS: HYDROmorphone 0.5 MG/0.5 ML SYRINGE IVP PRN ×4 (11:34→19:12)
[2017-03-14] MEDS: D5NS W/20 MEQ KCL 1,000 ML IV SCH (11:34)
[2017-03-14] MEDS: SODIUM CHLORIDE FLUSH 0.9% 10 ML SYRINGE IVP PRN ×2 (16:09→19:12)
[2017-03-15] MEDS: HYDROmorphone 0.5 MG/0.5 ML SYRINGE IVP PRN ×10 (00:08→23:58)
[2017-03-15] MEDS: ACETAMINOPHEN 1,000 MG/100 ML 100 ML IV SCH ×4 (00:37→18:52)
--- NOTE | 2017-03-15 00:43 | PROVIDER PROGRESS NOTE ---
Subjective - General Admit Date: 03/13/17 Procedure Date: 03/13/17 Post Op Days: 2 Procedure Performed: SILS ileostomy takedown - Review of Systems Wound/Incisions: positive: Dressing dry and intact General: positive: No symptoms. negative: Fever, Malaise, Chills HEENT: positive: No symptoms Pulmonary: positive: No symptoms Cardiovascular: positive: No symptoms Gastrointestinal: positive: Abdominal pain (Very mild.), Other (Some belching.) . negative: Nausea, Vomiting, Flatus, Constipation, Diarrhea Genitourinary: positive: No symptoms (Gunter was supposed to be removed in the AM and was not removed until the afternoon.) Musculoskeletal: positive: Shoulder pain (LEFT shoulder pain likely due to residual gas in the abdomen.) Skin: positive: No symptoms Psychiatric: positive: No symptoms Objective - Patient Data Reviewed Vital Signs: Yes Vital Signs: Vital Signs x48h Temp Pulse Pulse Resp BP Pulse Ox 03/14/17 20:38 58 L 119/74 03/14/17 19:38 36.8 C 60 18 113/65 98 Weight: Weight 03/13/17 03/14/17 03/15/17 23:59 23:59 23:59 Weight (kg) 65 kg Intake & Output: Intake and Output Totals x24h 03/13/17 03/14/17 03/15/17 23:59 23:59 23:59 Intake Total 229.663 9470.667 Output Total 775 1425 Balance -191.498 4429.667 - Lab Results Lab Results: 03/14/17 04:57 03/14/17 04:57 Other Lab Results: Lab Results x24hrs 03/14/17 03/14/17 Range/Units 04:57 04:57 WBC 13.5 H (4.8-10.8) x10^3/uL RBC 3.13 L (4.70-6.10) 10^6/uL Hgb 10.5 L (14.0-18.0) g/dL Hct 31.4 L (42.0-52.0) % MCV 100.5 H (80.0-94.0) fL MCH 33.7 H (27.0-31.0) pg MCHC 33.6 (32.0-36.0) g/dL RDW 15.0 (12.0-15.0) % Plt Count 194 (130-450) 10^3/uL MPV 7.0 L (7.4-11.4) fL Neut # 11.8 H (1.5-6.6) 10^3/uL Lymph # 0.4 L (1.5-3.5) 10^3/uL [place] # 1.3 H (0.0-1.0) 10^3/uL Eos # 0.0 (0.0-0.7) 10^3/uL Baso # 0.0 (0.0-0.1) 10^3/uL Absolute Nucleated RBC 0.00 x10^3/uL Nucleated RBC % 0.0 /100WBC Sodium 135 (135-145) mmol/L Potassium 4.6 (3.5-5.0) mmol/L Chloride 110 (101-111) mmol/L Carbon Dioxide 17 L (21-32) mmol/L Anion Gap 8.0 (6-13) BUN 34 H (6-20) mg/dL Creatinine 2.0 H (0.6-1.2) mg/dL Estimated GFR (MDRD) 33 L (>89) Glucose 127 H (70-100) mg/dL Calcium 8.5 (8.5-10.3) mg/dL Total Bilirubin 0.6 (0.2-1.0) mg/dL AST 21 (10-42) IU/L ALT 24 (10-60) IU/L Alkaline Phosphatase 53 (42-121) IU/L Total Protein 6.0 L (6.7-8.2) g/dL Albumin 3.1 L (3.2-5.5) g/dL Globulin 2.9 (2.1-4.2) g/dL Albumin/Globulin Ratio 1.1 (1.0-2.2) - Current Medications Current Medications: Current Medications Generic Name Dose Route Start Last Admin Trade Name Freq PRN Reason Stop Dose Admin Amiodarone HCl 200 mg 03/14/17 09:00 03/14/17 09:19 Pacerone PO 200 mg DAILY MATTHIEU Administration Enoxaparin Sodium 40 mg 03/14/17 09:00 03/14/17 09:19 Lovenox SUBQ 40 mg DAILY MATTHIEU Administration Hydromorphone HCl 0.5 mg 03/13/17 12:40 03/15/17 00:08 Dilaudid Inj Syringe IVP 0.5 mg Q1H PRN Administration PAIN Potassium Chloride/Dextrose/Sod Cl 1,000 mls @ 50 mls/hr 03/13/17 13:00 03/14 22:12 IV 50 mls/hr .Q20H MATTHIEU Infusion Acetaminophen 100 mls @ 400 mls/hr 03/13/17 13:00 03/15/17 00:37 Ofirmev IV 400 mls/hr Q6H MATTHIEU Administration Metoprolol Succinate 25 mg 03/13/17 21:00 03/14/17 20:39 Toprol Xl PO Not Given BID MATTHIEU Pantoprazole Sodium 40 mg 03/14/17 07:00 03/14/17 07:00 Protonix IVP 40 mg QDAC MATTHIEU Administration Sodium Chloride 10 ml 03/13/17 14:00 03/14/17 20:36 Normal Saline Flush 0.9% IVP Not Given Q8HR MATTHIEU Sodium Chloride 10 ml 03/13/17 12:40 03/14/17 19:12 Normal Saline Flush 0.9% IVP 10 ml PRN PRN Administration NEEDED PER PROVIDER ORDERS - Physical Exam Wound/Incisions: positive: Dressing dry and intact General Appearance: positive: No acute distress Eyes Bilateral: positive: No lid inflammation, Conjunctivae nml, No scleral icterus Neck: positive: Trachea midline Respiratory: positive: Chest non-tender, No respiratory distress, Breath sounds nml Cardiovascular: positive: Regular rate & rhythm Abdomen: positive: Tenderness (Mild incisional.) Skin: positive: Color nml Extremities: positive: Non-tender, Full ROM, Nml appearance Neurologic/Psychiatric: positive: Oriented x3 Impression/Plan - Problem List Problem List: D1 s/p SILS takedown of ileostomy. ERAS protocol in place with minimized IVF, patient taking oral fluids within the first 24 hours, advanced ambulation and removal of Gunter done. No extermination inspector antibiotics. Preoperative intake of carbohydrates and proteins done. Will remove dressing in AM. Patient to continue ambulating at least TID. If no nausea/vomiting in AM consider advancing diet. Will check labs in AM.
[2017-03-15] MEDS: SODIUM CHLORIDE FLUSH 0.9% 10 ML SYRINGE IVP SCH ×3 (04:20→20:35)
[2017-03-15 05:25] LABS: BASOPHILS % (AUTO) 0.3 %; EOSINOPHILS % (AUTO) 0.6 %; HCT - HEMATOCRIT 32.5 % (42.0-52.0); HGB - HEMOGLOBIN 10.8 g/dL (14.0-18.0); LYMPHOCYTES # (AUTO) 0.7 10^3/uL (1.5-3.5); LYMPHOCYTES % (AUTO) 7.9 %; MEAN CORPUSCULAR HEMOGLOBIN 33.7 pg (27.0-31.0); MEAN CORPUSCULAR HGB CONC 33.2 g/dL (32.0-36.0); MEAN CORPUSCULAR VOLUME 101.6 fL (80.0-94.0); MEAN PLATELET VOLUME 7.2 fL (7.4-11.4); MONOCYTES # (AUTO) 0.8 10^3/uL (0.0-1.0); NEUTROPHILS # (AUTO) 6.8 10^3/uL (1.5-6.6); NEUTROPHILS % (AUTO) 82.2 %; RED BLOOD COUNT 3.19 10^6/uL (4.70-6.10); RED CELL DISTRIBUTION WIDTH 15.2 % (12.0-15.0); UNCORRECTED WHITE BLOOD COUNT 8.3 x10^3/uL; WHITE BLOOD COUNT 8.3 x10^3/uL (4.8-10.8)
[2017-03-15 05:31] LABS: BILIRUBIN,TOTAL 0.8 mg/dL (0.2-1.0); CALCIUM 8.2 mg/dL (8.5-10.3); CREATININE 1.6 mg/dL (0.6-1.2); POTASSIUM 4.2 mmol/L (3.5-5.0); TOTAL PROTEIN 5.9 g/dL (6.7-8.2)
[2017-03-15] MEDS: PANTOPRAZOLE 40 MG VIAL IVP SCH (06:57)
[2017-03-15] MEDS: D5NS W/20 MEQ KCL 1,000 ML IV SCH (06:57)
[2017-03-15] MEDS: SODIUM CHLORIDE FLUSH 0.9% 10 ML SYRINGE IVP PRN ×5 (06:58→23:59)
[2017-03-15] MEDS: METOPROLOL SUCCINATE 25 MG TABLET PO SCH ×2 (09:02→20:56)
[2017-03-15] MEDS: AMIODARONE 200 MG TABLET PO SCH (09:02)
[2017-03-15] MEDS: ENOXAPARIN 40 MG/0.4 ML SYRINGE SUBQ SCH (09:02)
[2017-03-16] MEDS: ACETAMINOPHEN 1,000 MG/100 ML 100 ML IV SCH ×4 (01:06→19:49)
[2017-03-16] MEDS: D5NS W/20 MEQ KCL 1,000 ML IV SCH ×2 (05:03→20:51)
[2017-03-16] MEDS: HYDROmorphone 0.5 MG/0.5 ML SYRINGE IVP PRN ×5 (05:04→23:45)
[2017-03-16] MEDS: SODIUM CHLORIDE FLUSH 0.9% 10 ML SYRINGE IVP SCH ×3 (06:52→20:42)
[2017-03-16] MEDS: PANTOPRAZOLE 40 MG VIAL IVP SCH (06:52)
[2017-03-16] MEDS: AMIODARONE 200 MG TABLET PO SCH (08:27)
[2017-03-16] MEDS: ENOXAPARIN 40 MG/0.4 ML SYRINGE SUBQ SCH (08:27)
[2017-03-16] MEDS: METOPROLOL SUCCINATE 25 MG TABLET PO SCH ×2 (08:27→20:43)
--- NOTE | 2017-03-16 16:37 | PROVIDER PROGRESS NOTE ---
Subjective - General Admit Date: 03/13/17 Procedure Date: 03/13/17 Post Op Days: 3 Procedure Performed: SILS ileostomy takedown - Review of Systems Wound/Incisions: positive: Dressing dry and intact General: positive: No symptoms. negative: Fever, Malaise, Chills HEENT: positive: No symptoms Pulmonary: positive: No symptoms Cardiovascular: positive: No symptoms Gastrointestinal: positive: Abdominal pain (Sightly increased today compared to yesterday.), Other (Some belching, decreased appetite today.). negative: Nausea , Vomiting, Flatus, Constipation, Diarrhea Genitourinary: positive: No symptoms (Gunter was supposed to be removed in the AM and was not removed until the afternoon.) Musculoskeletal: positive: Shoulder pain (LEFT shoulder pain likely due to residual gas in the abdomen.) Skin: positive: No symptoms Psychiatric: positive: No symptoms Objective - Patient Data Reviewed Vital Signs: Yes Vital Signs: Vital Signs x48h Temp Pulse Resp BP Pulse Ox 03/16/17 13:09 36.3 C L 60 16 137/91 H 97 03/16/17 09:00 36.5 C 59 L 18 141/86 H 98 Intake & Output: Intake and Output Totals x24h 03/14/17 03/15/17 03/16/17 23:59 23:59 23:59 Intake Total 3731.667 3917.666 1055.834 Output Total 1425 1750 895 Balance 2306.667 2167.666 160.834 - Lab Results Lab Results: 03/15/17 04:44 03/15/17 04:44 - Current Medications Current Medications: Current Medications Generic Name Dose Route Start Last Admin Trade Name Freq PRN Reason Stop Dose Admin Amiodarone HCl 200 mg 03/14/17 09:00 03/16/17 08:27 Pacerone PO 200 mg DAILY MATTHIEU Administration Enoxaparin Sodium 40 mg 03/14/17 09:00 03/16/17 08:27 Lovenox SUBQ 40 mg DAILY MATTHIEU Administration Hydromorphone HCl 0.5 mg 03/13/17 12:40 03/16/17 15:14 Dilaudid Inj Syringe IVP 0.5 mg Q1H PRN Administration PAIN Potassium Chloride/Dextrose/Sod Cl 1,000 mls @ 50 mls/hr 03/13/17 13:00 03/16 05:03 IV 50 mls/hr .Q20H MATTHIEU Administration Acetaminophen 100 mls @ 400 mls/hr 03/13/17 13:00 03/16/17 13:20 Ofirmev IV Infused Q6H MATTHIEU Infusion Metoprolol Succinate 25 mg 03/13/17 21:00 03/16/17 08:27 Toprol Xl PO 25 mg BID MATTHIEU Administration Pantoprazole Sodium 40 mg 03/14/17 07:00 03/16/17 06:52 Protonix IVP 40 mg QDAC MATTHIEU Administration Sodium Chloride 10 ml 03/13/17 14:00 03/16/17 13:07 Normal Saline Flush 0.9% IVP Not Given Q8HR MATTHIEU Sodium Chloride 10 ml 03/13/17 12:40 03/15/17 23:59 Normal Saline Flush 0.9% IVP 10 ml PRN PRN Administration NEEDED PER PROVIDER ORDERS - Physical Exam Wound/Incisions: positive: Healing well (Slight swelling improved.) General Appearance: positive: No acute distress Eyes Bilateral: positive: No lid inflammation, Conjunctivae nml, No scleral icterus Neck: positive: Trachea midline Respiratory: positive: Chest non-tender, No respiratory distress, Breath sounds nml Cardiovascular: positive: Regular rate & rhythm Abdomen: positive: Tenderness (Incisional.), Abnml bowel sounds (Slightly decreased.) Skin: positive: Color nml Extremities: positive: Nml appearance Neurologic/Psychiatric: positive: Oriented x3 Impression/Plan - Problem List Problem List: POD #3 s/p SILS ileostomy takedown. Still no bowel function. Awaiting bowel function. Pain controlled. Patient feels bowel function is imminent. Patient requested dietary consult - will order. Patient has ambulated in halls twice today and attempting 4 times.
[2017-03-16] MEDS: ONDANSETRON 4 MG/2 ML VIAL IVP PRN (18:00)
[2017-03-17] MEDS: ACETAMINOPHEN 1,000 MG/100 ML 100 ML IV SCH ×4 (01:10→19:54)
[2017-03-17] MEDS: PANTOPRAZOLE 40 MG VIAL IVP SCH (06:02)
[2017-03-17] MEDS: SODIUM CHLORIDE FLUSH 0.9% 10 ML SYRINGE IVP SCH ×3 (06:03→19:54)
[2017-03-17] MEDS: SODIUM CHLORIDE FLUSH 0.9% 10 ML SYRINGE IVP PRN ×4 (06:03→23:49)
[2017-03-17] MEDS: HYDROmorphone 0.5 MG/0.5 ML SYRINGE IVP PRN ×6 (07:59→23:48)
[2017-03-17] MEDS: AMIODARONE 200 MG TABLET PO SCH (08:39)
[2017-03-17] MEDS: METOPROLOL SUCCINATE 25 MG TABLET PO SCH ×2 (08:39→19:54)
[2017-03-17] MEDS: ENOXAPARIN 40 MG/0.4 ML SYRINGE SUBQ SCH (08:39)
--- NOTE | 2017-03-17 12:19 | PROVIDER PROGRESS NOTE ---
Subjective - General Admit Date: 03/13/17 Procedure Date: 03/13/17 Post Op Days: 4 Procedure Performed: SILS ileostomy takedown - Review of Systems Wound/Incisions: positive: Healing well (Slight swelling improved.) General: positive: No symptoms. negative: Fever, Malaise, Chills HEENT: positive: No symptoms Pulmonary: positive: No symptoms Cardiovascular: positive: No symptoms Gastrointestinal: positive: Nausea (Started today.), Abdominal pain (Left side feels fine located more the the right side (site of previous ileostomy).), Other (Some belching, decreased appetite today.). negative: Vomiting, Flatus, Constipation, Diarrhea Genitourinary: positive: No symptoms (Gunter was supposed to be removed in the AM and was not removed until the afternoon.) Musculoskeletal: positive: Shoulder pain (LEFT shoulder pain likely due to residual gas in the abdomen.) Skin: positive: No symptoms Psychiatric: positive: No symptoms Objective - Patient Data Reviewed Vital Signs: Yes Vital Signs: Vital Signs x48h Temp Pulse Resp BP Pulse Ox 03/17/17 12:04 37.4 C 67 22 147/88 H 94 03/17/17 08:10 37.2 C 65 20 143/89 H 92 03/17/17 05:00 37.0 C 60 18 136/81 H 96 Intake & Output: Intake and Output Totals x24h 03/15/17 03/16/17 03/17/17 23:59 23:59 23:59 Intake Total 3917.666 5761.437 4169 Output Total 1750 1370 185 Balance 2167.666 907.963 0477 - Lab Results Lab Results: 03/15/17 04:44 03/15/17 04:44 - Current Medications Current Medications: Current Medications Generic Name Dose Route Start Last Admin Trade Name Freq PRN Reason Stop Dose Admin Amiodarone HCl 200 mg 03/14/17 09:00 03/17/17 08:39 Pacerone PO 200 mg DAILY MATTHIEU Administration Enoxaparin Sodium 40 mg 03/14/17 09:00 03/17/17 08:39 Lovenox SUBQ 40 mg DAILY MATTHIEU Administration Hydromorphone HCl 0.5 mg 03/13/17 12:40 03/17/17 11:56 Dilaudid Inj Syringe IVP 0.5 mg Q1H PRN Administration PAIN Potassium Chloride/Dextrose/Sod Cl 1,000 mls @ 50 mls/hr 03/13/17 13:00 03/17 01:10 IV Infused .Q20H MATTHIEU Infusion Acetaminophen 100 mls @ 400 mls/hr 03/13/17 13:00 03/17/17 06:33 Ofirmev IV Infused Q6H MATTHIEU Infusion Metoprolol Succinate 25 mg 03/13/17 21:00 03/17/17 08:39 Toprol Xl PO 25 mg BID MATTHIEU Administration Pantoprazole Sodium 40 mg 03/14/17 07:00 03/17/17 06:02 Protonix IVP 40 mg QDAC MATTHIEU Administration Sodium Chloride 10 ml 03/13/17 14:00 03/17/17 11:56 Normal Saline Flush 0.9% IVP 10 ml Q8HR MATTHIEU Administration Sodium Chloride 10 ml 03/13/17 12:40 03/17/17 06:03 Normal Saline Flush 0.9% IVP 20 ml PRN PRN Administration NEEDED PER PROVIDER ORDERS - Physical Exam Wound/Incisions: positive: Healing well (Stitches in place.). negative: Drainage, Erythema General Appearance: positive: No acute distress (Nervous appearing.) Eyes Bilateral: positive: No lid inflammation, Conjunctivae nml Neck: positive: Trachea midline Respiratory: positive: Chest non-tender, No respiratory distress, Breath sounds nml Cardiovascular: positive: Regular rate & rhythm Abdomen: positive: Abnml bowel sounds (Decreased.). negative: No distention, Guarding, Rebound, Hepatomegaly, Splenomegaly Skin: positive: Color nml Extremities: positive: Non-tender, Full ROM, Nml appearance (Able to get out of bed on his own now.) Neurologic/Psychiatric: positive: Oriented x3 Impression/Plan - Problem List Problem List: D4 s/p SILS takedown ileostomy Still awaiting bowel function to return. Has not despite ERAS protocol. Will see if Alvimopam is available. Check labs in AM. Patient is doing an excellent job ambulating. Continue IVF. Hypertension is likely due to pain and /or anxiety.
[2017-03-17] MEDS: ONDANSETRON 4 MG/2 ML VIAL IVP PRN (19:54)
[2017-03-17] MEDS: D5NS W/20 MEQ KCL 1,000 ML IV SCH (21:47)
[2017-03-18] MEDS: ACETAMINOPHEN 1,000 MG/100 ML 100 ML IV SCH ×4 (01:17→20:07)
[2017-03-18 05:34] LABS: BASOPHILS % (AUTO) 0.1 %; EOSINOPHILS % (AUTO) 0.1 %; HCT - HEMATOCRIT 29.9 % (42.0-52.0); HGB - HEMOGLOBIN 9.9 g/dL (14.0-18.0); LYMPHOCYTES # (AUTO) 0.5 10^3/uL (1.5-3.5); LYMPHOCYTES % (AUTO) 6.1 %; MEAN CORPUSCULAR HEMOGLOBIN 33.1 pg (27.0-31.0); MEAN CORPUSCULAR HGB CONC 33.1 g/dL (32.0-36.0); MEAN CORPUSCULAR VOLUME 100.1 fL (80.0-94.0); MEAN PLATELET VOLUME 6.8 fL (7.4-11.4); MONOCYTES # (AUTO) 0.8 10^3/uL (0.0-1.0); MONOCYTES % (AUTO) 10.9 %; NEUTROPHILS # (AUTO) 6.1 10^3/uL (1.5-6.6); NEUTROPHILS % (AUTO) 82.8 %; RED BLOOD COUNT 2.98 10^6/uL (4.70-6.10); RED CELL DISTRIBUTION WIDTH 14.4 % (12.0-15.0); UNCORRECTED WHITE BLOOD COUNT 7.4 x10^3/uL; WHITE BLOOD COUNT 7.4 x10^3/uL (4.8-10.8)
[2017-03-18 05:43] LABS: ALBUMIN/GLOBULIN RATIO 0.8 (1.0-2.2); BILIRUBIN,TOTAL 0.5 mg/dL (0.2-1.0); CALCIUM 8.9 mg/dL (8.5-10.3); CREATININE 1.3 mg/dL (0.6-1.2); POTASSIUM 4.2 mmol/L (3.5-5.0); TOTAL PROTEIN 5.6 g/dL (6.7-8.2)
[2017-03-18] MEDS: HYDROmorphone 0.5 MG/0.5 ML SYRINGE IVP PRN ×6 (06:34→20:10)
[2017-03-18] MEDS: SODIUM CHLORIDE FLUSH 0.9% 10 ML SYRINGE IVP SCH ×3 (06:35→20:11)
[2017-03-18] MEDS: PANTOPRAZOLE 40 MG VIAL IVP SCH (06:38)
[2017-03-18] MEDS: SODIUM CHLORIDE FLUSH 0.9% 10 ML SYRINGE IVP PRN ×5 (06:39→17:53)
[2017-03-18] MEDS: AMIODARONE 200 MG TABLET PO SCH (09:12)
[2017-03-18] MEDS: ENOXAPARIN 40 MG/0.4 ML SYRINGE SUBQ SCH (09:12)
[2017-03-18] MEDS: METOPROLOL SUCCINATE 25 MG TABLET PO SCH ×2 (09:12→20:08)
--- NOTE | 2017-03-18 12:00 | PROVIDER PROGRESS NOTE ---
Subjective - General Admit Date: 03/13/17 Procedure Date: 03/13/17 Post Op Days: 5 Procedure Performed: SILS ileostomy takedown - Review of Systems Wound/Incisions: positive: Healing well (Stitches in place. Slight edema.). negative: Drainage, Erythema Functional Status: positive: 1, 2, 3, 4 General: positive: No symptoms. negative: Fever, Malaise, Chills HEENT: positive: No symptoms Pulmonary: positive: No symptoms Cardiovascular: positive: No symptoms Gastrointestinal: positive: Abdominal pain (Decreased.), Flatus, Other (Some belching, decreased appetite.). negative: Nausea, Vomiting, Constipation, Diarrhea Genitourinary: positive: No symptoms (Gunter was supposed to be removed in the AM and was not removed until the afternoon.) Musculoskeletal: positive: Shoulder pain (LEFT shoulder pain likely due to residual gas in the abdomen.) Skin: positive: No symptoms Neurological: Psychiatric: positive: No symptoms All Other Systems: positive: Reviewed and negative - Other Other Information/Narrative: I was called by Eileen (nurse) last night about nausea and vomiting and increased abdominal distention (with increased heart rate and BP) and I asked that an NG be placed. The patient refused and soon thereafter farted and belched with relief of his symptoms. Objective - Patient Data Reviewed Vital Signs: Yes Vital Signs: Vital Signs x48h Temp Pulse Resp BP Pulse Ox 03/18/17 07:51 37.2 C 62 22 133/81 H 94 Intake & Output: Intake and Output Totals x24h 03/16/17 03/17/17 03/18/17 23:59 23:59 23:59 Intake Total 5302.263 4359 200 Output Total 1370 335 150 Balance 642.989 3929 50 - Lab Results Lab Results: 03/18/17 05:25 03/18/17 05:25 Other Lab Results: Lab Results x24hrs 03/18/17 03/18/17 Range/Units 05:25 05:25 WBC 7.4 (4.8-10.8) x10^3/uL RBC 2.98 L (4.70-6.10) 10^6/uL Hgb 9.9 L (14.0-18.0) g/dL Hct 29.9 L (42.0-52.0) % MCV 100.1 H (80.0-94.0) fL MCH 33.1 H (27.0-31.0) pg MCHC 33.1 (32.0-36.0) g/dL RDW 14.4 (12.0-15.0) % Plt Count 272 (130-450) 10^3/uL MPV 6.8 L (7.4-11.4) fL Neut # 6.1 (1.5-6.6) 10^3/uL Lymph # 0.5 L (1.5-3.5) 10^3/uL [place] # 0.8 (0.0-1.0) 10^3/uL Eos # 0.0 (0.0-0.7) 10^3/uL Baso # 0.0 (0.0-0.1) 10^3/uL Absolute Nucleated RBC 0.00 x10^3/uL Nucleated RBC % 0.0 /100WBC Sodium 137 (135-145) mmol/L Potassium 4.2 (3.5-5.0) mmol/L Chloride 106 (101-111) mmol/L Carbon Dioxide 23 (21-32) mmol/L Anion Gap 8.0 (6-13) BUN 23 H (6-20) mg/dL Creatinine 1.3 H (0.6-1.2) mg/dL Estimated GFR (MDRD) 54 L (>89) Glucose 116 H (70-100) mg/dL Calcium 8.9 (8.5-10.3) mg/dL Total Bilirubin 0.5 (0.2-1.0) mg/dL AST 16 (10-42) IU/L ALT 15 (10-60) IU/L Alkaline Phosphatase 70 (42-121) IU/L Total Protein 5.6 L (6.7-8.2) g/dL Albumin 2.5 L (3.2-5.5) g/dL Globulin 3.1 (2.1-4.2) g/dL Albumin/Globulin Ratio 0.8 L (1.0-2.2) - Current Medications Current Medications: Current Medications Generic Name Dose Route Start Last Admin Trade Name Freq PRN Reason Stop Dose Admin Amiodarone HCl 200 mg 03/14/17 09:00 03/18/17 09:12 Pacerone PO 200 mg DAILY MATTHIEU Administration Enoxaparin Sodium 40 mg 03/14/17 09:00 03/18/17 09:12 Lovenox SUBQ 40 mg DAILY MATTHIEU Administration Hydromorphone HCl 0.5 mg 03/13/17 12:40 03/18/17 09:42 Dilaudid Inj Syringe IVP 0.5 mg Q1H PRN Administration PAIN Potassium Chloride/Dextrose/Sod Cl 1,000 mls @ 50 mls/hr 03/13/17 13:00 03/17 21:47 IV 50 mls/hr .Q20H MATTHIEU Administration Acetaminophen 100 mls @ 400 mls/hr 03/13/17 13:00 03/18/17 07:00 Ofirmev IV Infused Q6H MATTHIEU Infusion Metoprolol Succinate 25 mg 03/13/17 21:00 03/18/17 09:12 Toprol Xl PO 25 mg BID MATTHIEU Administration Ondansetron HCl 4 mg 03/13/17 12:40 03/17/17 19:54 Zofran Inj IVP 4 mg Q6H PRN Administration Nausea / Vomiting Pantoprazole Sodium 40 mg 03/14/17 07:00 03/18/17 06:38 Protonix IVP 40 mg QDAC MATTHIEU Administration Sodium Chloride 10 ml 03/13/17 14:00 03/18/17 06:35 Normal Saline Flush 0.9% IVP 10 ml Q8HR MATTHIEU Administration Sodium Chloride 10 ml 03/13/17 12:40 03/18/17 09:43 Normal Saline Flush 0.9% IVP 10 ml PRN PRN Administration NEEDED PER PROVIDER ORDERS - Physical Exam Wound/Incisions: positive: Healing well, No drainage. negative: Drainage, Erythema, Decubitis (Slight edema.) General Appearance: positive: No acute distress, Alert Eyes Bilateral: positive: No lid inflammation, Conjunctivae nml, No scleral icterus Neck: positive: Trachea midline Respiratory: positive: Chest non-tender, No respiratory distress, Breath sounds nml Cardiovascular: positive: Regular rate & rhythm Abdomen: positive: Nml bowel sounds, Tenderness (Incisional.) Skin: positive: Color nml. negative: Cyanosis Extremities: positive: Non-tender, Full ROM, Nml appearance. negative: Calf tenderness Neurologic/Psychiatric: positive: Oriented x3 Impression/Plan - Problem List Problem List: D5 s/p SILS ileostomy takedown Patient seems to be better with improved (but not perfect) bowel function. Will order a mineral oil enema today to see if I can "instigate" better bowel function. Patient keeps "trying" to have a bowel movement and I explained that it will "happen when it happens." Continue IVF and general diet. Patient ambulating sell. No evidence of infection. No need to check labs in AM.
[2017-03-18] MEDS ORDERED: MINERAL OIL ENEMA 133 ML BOTTLE RC SCH (13:00)
[2017-03-18] MEDS: D5NS W/20 MEQ KCL 1,000 ML IV SCH (17:58)
[2017-03-19] MEDS: HYDROmorphone 0.5 MG/0.5 ML SYRINGE IVP PRN ×2 (00:06→01:20)
[2017-03-19] MEDS: SODIUM CHLORIDE FLUSH 0.9% 10 ML SYRINGE IVP PRN ×2 (00:06→06:27)
[2017-03-19] MEDS: SODIUM CHLORIDE FLUSH 0.9% 10 ML SYRINGE IVP SCH ×3 (01:21→21:37)
[2017-03-19] MEDS: ACETAMINOPHEN 1,000 MG/100 ML 100 ML IV SCH ×4 (03:51→21:35)
[2017-03-19] MEDS: PANTOPRAZOLE 40 MG VIAL IVP SCH (06:27)
[2017-03-19] MEDS: ENOXAPARIN 40 MG/0.4 ML SYRINGE SUBQ SCH (08:52)
[2017-03-19] MEDS: AMIODARONE 200 MG TABLET PO SCH (08:52)
[2017-03-19] MEDS: METOPROLOL SUCCINATE 25 MG TABLET PO SCH ×2 (08:52→21:37)
[2017-03-19] MEDS: D5NS W/20 MEQ KCL 1,000 ML IV SCH (13:33)
[2017-03-20] MEDS: ACETAMINOPHEN 1,000 MG/100 ML 100 ML IV SCH ×2 (04:59→10:35)
[2017-03-20] MEDS: SODIUM CHLORIDE FLUSH 0.9% 10 ML SYRINGE IVP SCH (06:18)
[2017-03-20] MEDS: PANTOPRAZOLE 40 MG VIAL IVP SCH (06:18)
[2017-03-20] MEDS: SODIUM CHLORIDE FLUSH 0.9% 10 ML SYRINGE IVP PRN (06:18)
[2017-03-20 08:02] VITALS: BP 151/85
[2017-03-20] MEDS: METOPROLOL SUCCINATE 25 MG TABLET PO SCH (08:47)
[2017-03-20] MEDS: AMIODARONE 200 MG TABLET PO SCH (08:47)
[2017-03-20] MEDS: ENOXAPARIN 40 MG/0.4 ML SYRINGE SUBQ SCH (08:47)
[2017-03-20] MEDS: D5NS W/20 MEQ KCL 1,000 ML IV SCH (10:37)
--- NOTE | 2017-03-20 12:44 | PROVIDER PROGRESS NOTE ---
Subjective - General Admit Date: 03/13/17 Procedure Date: 03/13/17 Post Op Days: 7 Procedure Performed: SILS ileostomy takedown - Review of Systems Wound/Incisions: positive: Healing well, No drainage. negative: Drainage, Erythema, Decubitis (Slight edema.) Functional Status: positive: 1, 2, 3, 4 General: positive: No symptoms. negative: Fever, Malaise, Chills HEENT: positive: No symptoms Pulmonary: positive: No symptoms Cardiovascular: positive: No symptoms Gastrointestinal: positive: Abdominal pain (Decreased.), Flatus, Diarrhea, Other (Some belching, decreased appetite.). negative: Nausea, Vomiting, Constipation Genitourinary: positive: No symptoms (Gunter was supposed to be removed in the AM and was not removed until the afternoon.) Skin: positive: No symptoms Psychiatric: positive: No symptoms All Other Systems: positive: Reviewed and negative Objective - Patient Data Reviewed Vital Signs: Yes Vital Signs: Vital Signs x48h Temp Pulse Resp BP Pulse Ox 03/20/17 08:01 36.5 C 60 18 151/85 H 97 Intake & Output: Intake and Output Totals x24h 03/18/17 03/19/17 03/20/17 23:59 23:59 23:59 Intake Total 1989 2526.167 1200.000 Output Total 150 Balance 1840 2526.167 1200.000 - Lab Results Lab Results: 03/18/17 05:25 03/18/17 05:25 - Current Medications Current Medications: Current Medications Generic Name Dose Route Start Last Admin Trade Name Freq PRN Reason Stop Dose Admin Amiodarone HCl 200 mg 03/14/17 09:00 03/20/17 08:47 Pacerone PO 200 mg DAILY MATTHIEU Administration Enoxaparin Sodium 40 mg 03/14/17 09:00 03/20/17 08:47 Lovenox SUBQ 40 mg DAILY MATTHIEU Administration Hydromorphone HCl 0.5 mg 03/13/17 12:40 03/19/17 01:20 Dilaudid Inj Syringe IVP 0.5 mg Q1H PRN Administration PAIN Potassium Chloride/Dextrose/Sod Cl 1,000 mls @ 50 mls/hr 03/13/17 13:00 03/20 10:37 IV 50 mls/hr .Q20H MATTHIEU Administration Acetaminophen 100 mls @ 400 mls/hr 03/19/17 10:00 03/20/17 10:50 Ofirmev IV Infused Q6H MATTHIEU Infusion Metoprolol Succinate 25 mg 03/13/17 21:00 03/20/17 08:47 Toprol Xl PO 25 mg BID MATTHIEU Administration Ondansetron HCl 4 mg 03/13/17 12:40 03/17/17 19:54 Zofran Inj IVP 4 mg Q6H PRN Administration Nausea / Vomiting Pantoprazole Sodium 40 mg 03/14/17 07:00 03/20/17 06:18 Protonix IVP 40 mg QDAC MATTHIEU Administration Sodium Chloride 10 ml 03/13/17 14:00 03/20/17 06:18 Normal Saline Flush 0.9% IVP 10 ml Q8HR MATTHIEU Administration Sodium Chloride 10 ml 03/13/17 12:40 03/20/17 06:18 Normal Saline Flush 0.9% IVP 10 ml PRN PRN Administration NEEDED PER PROVIDER ORDERS - Physical Exam Wound/Incisions: positive: Healing well (Last stitch removed and benzoin and steristrips applied. Patient tolerated well.) General Appearance: positive: No acute distress Eyes Bilateral: positive: No lid inflammation, Conjunctivae nml, No scleral icterus Neck: positive: Trachea midline Respiratory: positive: Chest non-tender, No respiratory distress, Breath sounds nml Cardiovascular: positive: Regular rate & rhythm Abdomen: positive: Nml bowel sounds, Tenderness (Minimal incisional.) Skin: positive: Color nml Extremities: positive: Non-tender, Nml appearance Neurologic/Psychiatric: positive: Oriented x3 Impression/Plan - Problem List Problem List: D7 s/p SILS takedown of ileostomy Tolerating general diet. Having bowel movements (albeit diarrhea) and passing gas. Not taking pain medications. Ambulating and can get out of bed on his own. No evidence of ongoing infection. Discharge to home with follow up with me in 7-10 days. No lifting >15 pounds for 6 weeks. Instructed patient that energy level and appetite will return in the next 6 weeks.
--- NOTE | 2017-03-20 12:48 | Discharge Plan ---
Discharge Plan Disposition: Home, Self Care Condition: Good Prescriptions: HYDROcod/ACETAM 325 [[place] 5/325] 1 tab PO Q4HR #30 tablet Diet: Regular Activity Restrictions: No lifting >15 pounds for 6 weeks. Shower Restrictions: No Driving Restrictions: Yes (Until seen by me in office.) Weight Bearing: Full Weight Additional Instructions or Follow Up instructions: Contact me with any surgical questions or concerns . No Smoking: If you smoke, Please STOP! Call for help. Follow-up with: Jayjay Busby MD [Primary Care Provider] - Parag Cantu MD [Provider Admit Priv/Credential] -
--- NOTE | 2017-03-20 13:41 | DISCHARGE SUMMARY ---
DATE OF ADMISSION: 03/13/2017 DATE OF DISCHARGE: 03/20/2017 ADMISSION DIAGNOSIS: Ileostomy. PROCEDURE: On 03/13/2017, SILS (single incision laparoscopic surgery) ileostomy takedown. PRIMARY SURGEON: Parag Cantu MD SECONDARY SURGERY: Eileen Borges MD CANCER PROGRAM DIRECTOR: Stephen Amador The operation itself went well without any unanticipated findings or consequence. I waited for the patient's bowel function to return prior to feeding him. The ERAS protocol was initiated, but despite this the patient had somewhat of a prolonged ileus. On the night of the 5th postoperative day/ morning of the 6th postoperative day, the patient had bowel function return with the presence of diarrhea. The diarrhea has persisted. During this time, he was fed a general diet. The patient is being discharged home on the 7th postoperative day to follow up with me in 7-10 days. He is to contact me with any surgical questions and/or concerns, and he stated that he would. He can bear full weight. He is not to do any lifting greater than 15 pounds for a total of 6 weeks. He can eat a general diet. It is okay to shower, hot tub or swim. I do not wish to have him driving until I can see his reaction time in 1 week's time. Additionally, should he likely follow up with Dr. Jayjay Busby for any medical issues. JOB #: [id number] EXT JOB #:[id number] MTDD
== END 2017-03-20 13:30 | disposition home or self-care (01) | DRG 348 ==
LOC: MS2 08:26
PROVIDERS: ADMIT Surgery; ATTEND Surgery
PROC: 0DBB4ZZ Excision of Ileum, Percutaneous Endoscopic Approach (ICD-10-PCS; principal; 2017-03-13 09:30)
DX: Z43.2 Encounter for attention to ileostomy (principal); K91.89 Other postprocedural complications and disorders of digestive system; K56.7 Ileus, unspecified; Y83.2 Surgical operation with anastomosis, bypass or graft as the cause of abnormal reaction of the patient, or of later complication, without mention of misadventure at the time of the procedure; Y92.239 Unspecified place in hospital as the place of occurrence of the external cause; I10 Essential (primary) hypertension; Z96.659 Presence of unspecified artificial knee joint; Z87.891 Personal history of nicotine dependence; Z95.810 Presence of automatic (implantable) cardiac defibrillator
CPT/HCPCS: 36415; 80053; 85025

== ENCOUNTER 2017-04-02 09:00 | Outpatient (CLI) | payer MEDICARE, OTHER | END 2017-04-02 09:01 | disposition home or self-care (01) | LOC: LAB.R 09:00 | PROVIDERS: ATTEND Surgery | DX: R19.7 Diarrhea, unspecified (principal) | CPT/HCPCS: 87045; 87046; 87493 ==

== ENCOUNTER 2017-04-23 08:00 | Outpatient (CLI) | payer MEDICARE, OTHER ==
[2017-04-23 19:29] LABS: ALBUMIN/GLOBULIN RATIO 1.2 (1.0-2.2); BILIRUBIN,TOTAL 0.6 mg/dL (0.2-1.0); CALCIUM 8.8 mg/dL (8.5-10.3); CREATININE 1.4 mg/dL (0.6-1.2); POTASSIUM 3.5 mmol/L (3.5-5.0); TOTAL PROTEIN 6.7 g/dL (6.7-8.2)
== END 2017-04-23 08:01 | disposition home or self-care (01) ==
LOC: LAB.N 08:00
PROVIDERS: ATTEND Internal Medicine Cardiovascular Disease
DX: R06.02 Shortness of breath (principal); R60.0 Localized edema; Z79.899 Other long term (current) drug therapy
CPT/HCPCS: 36415; 80053; 83880; 84443

== ENCOUNTER 2017-05-01 10:40 | Outpatient (CLI) | payer MEDICARE, OTHER | END 2017-05-01 10:41 | disposition home or self-care (01) | LOC: RT 10:40 → DI 10:41 | PROVIDERS: ATTEND Internal Medicine Cardiovascular Disease | DX: I50.20 Unspecified systolic (congestive) heart failure (principal); I42.8 Other cardiomyopathies; R60.0 Localized edema | CPT/HCPCS: 36415; 80048; 93308 ==

== ENCOUNTER 2017-05-01 10:58 | Outpatient (CLI) | payer MEDICARE, OTHER ==
[2017-05-01 11:18] LABS: CALCIUM 8.9 mg/dL (8.5-10.3); CREATININE 1.5 mg/dL (0.6-1.2)
== END 2017-05-01 10:59 | disposition home or self-care (01) ==
LOC: DI 10:58
PROVIDERS: ATTEND Internal Medicine Cardiovascular Disease
DX: I50.20 Unspecified systolic (congestive) heart failure (principal)
CPT/HCPCS: 36415; 80048

== ENCOUNTER 2017-05-08 09:25 | Outpatient (CLI) | payer MEDICARE, OTHER | END 2017-05-08 09:26 | disposition home or self-care (01) | LOC: RT 09:25 | PROVIDERS: ATTEND Internal Medicine Cardiovascular Disease | DX: Z79.899 Other long term (current) drug therapy (principal) | CPT/HCPCS: 94010; 94729 ==

== ENCOUNTER 2017-06-05 14:30 | Outpatient (CLI) | payer MEDICARE, OTHER | END 2017-06-05 14:45 | disposition home or self-care (01) | LOC: RT.N 14:30 | PROVIDERS: ATTEND Family Medicine | DX: R06.01 Orthopnea (principal) | CPT/HCPCS: 93005 ==

== ENCOUNTER 2017-06-05 15:30 | Outpatient (CLI) | payer MEDICARE, OTHER ==
[2017-06-05 19:15] LABS: ALBUMIN 3.8 g/dL (3.2-5.5); ALBUMIN/GLOBULIN RATIO 1.3 (1.0-2.2); BASOPHILS % (AUTO) 0.7 %; BILIRUBIN,TOTAL 0.6 mg/dL (0.2-1.0); CALCIUM 8.6 mg/dL (8.5-10.3); CREATININE 1.3 mg/dL (0.6-1.2); EOSINOPHILS # (AUTO) 0.1 10^3/uL (0.0-0.7); EOSINOPHILS % (AUTO) 1.1 %; HGB - HEMOGLOBIN 11.4 g/dL (14.0-18.0); LYMPHOCYTES # (AUTO) 0.8 10^3/uL (1.5-3.5); LYMPHOCYTES % (AUTO) 12.5 %; MEAN CORPUSCULAR HEMOGLOBIN 31.7 pg (27.0-31.0); MEAN CORPUSCULAR HGB CONC 32.2 g/dL (32.0-36.0); MEAN CORPUSCULAR VOLUME 98.3 fL (80.0-94.0); MEAN PLATELET VOLUME 8.1 fL (7.4-11.4); MONOCYTES # (AUTO) 0.6 10^3/uL (0.0-1.0); MONOCYTES % (AUTO) 9.4 %; NEUTROPHILS # (AUTO) 4.7 10^3/uL (1.5-6.6); NEUTROPHILS % (AUTO) 76.3 %; PLT - PLATELET COUNT 294 10^3/uL (130-450); RED BLOOD COUNT 3.59 10^6/uL (4.70-6.10); RED CELL DISTRIBUTION WIDTH 14.1 % (12.0-15.0); TOTAL PROTEIN 6.8 g/dL (6.7-8.2); WHITE BLOOD COUNT 6.2 x10^3/uL (4.8-10.8)
== END 2017-06-05 15:31 | disposition home or self-care (01) ==
LOC: LAB.N 15:30
PROVIDERS: ATTEND Family Medicine
DX: R06.01 Orthopnea (principal)
CPT/HCPCS: 36415; 80053; 83880; 85025

== ENCOUNTER 2017-06-06 11:05 | Outpatient (CLI) | payer MEDICARE, OTHER ==
--- NOTE | 2017-06-06 13:11 | XRAY Report ---
DATE OF SERVICE: 06/06/2017 TWO VIEW CHEST: 06/06/2017 CLINICAL INDICATION: Orthopnea. COMPARISON: 11/14/2016. FINDINGS: Frontal and lateral views of the chest demonstrate a normal cardiac silhouette. 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 There is mild pulmonary vascular congestion and small effusions, suggestive of mild congestive failure. No focal infiltrate, or pneumothorax is present. IMPRESSION: MILD PULMONARY VASCULAR CONGESTION AND SMALL EFFUSIONS, COMPATIBLE WITH MILD CONGESTIVE FAILURE. TD: 06/06/2017 14:10
== END 2017-06-06 11:06 | disposition home or self-care (01) ==
LOC: DI 11:05
PROVIDERS: ATTEND Family Medicine
DX: J90 Pleural effusion, not elsewhere classified (principal); Z95.0 Presence of cardiac pacemaker
CPT/HCPCS: 71046

== ENCOUNTER 2017-06-18 00:01 | Outpatient (CLI) | payer MEDICARE, OTHER ==
[2017-06-18 19:24] LABS: CALCIUM 8.8 mg/dL (8.5-10.3); CREATININE 1.3 mg/dL (0.6-1.2)
== END 2017-06-18 00:02 | disposition home or self-care (01) ==
LOC: LAB.N 00:01
PROVIDERS: ATTEND Internal Medicine Cardiovascular Disease
DX: I50.23 Acute on chronic systolic (congestive) heart failure (principal); R06.02 Shortness of breath
CPT/HCPCS: 36415; 80048

== ENCOUNTER 2017-06-27 16:04 | Outpatient (CLI) | payer MEDICARE, OTHER ==
[2017-06-27 13:58] LABS: CALCIUM 9.3 mg/dL (8.5-10.3); CREATININE 1.2 mg/dL (0.6-1.2)
== END 2017-06-27 16:05 | disposition home or self-care (01) ==
LOC: LAB.N 16:04
PROVIDERS: ATTEND Internal Medicine Cardiovascular Disease
DX: I42.8 Other cardiomyopathies (principal)
CPT/HCPCS: 36415; 80048

== ENCOUNTER 2017-07-02 09:59 | Outpatient (CLI) | payer MEDICARE, OTHER | END 2017-07-02 10:00 | disposition home or self-care (01) | LOC: LAB 09:59 | PROVIDERS: ATTEND Nurse Anesthetist, Certified Registered | DX: I42.0 Dilated cardiomyopathy (principal); Z95.810 Presence of automatic (implantable) cardiac defibrillator; Z79.899 Other long term (current) drug therapy | CPT/HCPCS: 36415; 83880 ==

== ENCOUNTER 2017-07-03 08:29 | Day surgery (SDC) | payer MEDICARE, OTHER ==
[2017-07-03] MEDS ORDERED: LACTATED RINGERS 1,000 ML IV ONE ×2 (08:55→12:07)
[2017-07-03] MEDS ORDERED: ceFAZolin 2 GM/50 ML 2 GM/50 ML BAG IV ONE ×2 (08:56→09:01)
[2017-07-03] MEDS ORDERED: PROPOFOL 200 MG/20 ML VIAL IVP ONE (12:00)
[2017-07-03] MEDS ORDERED: fentaNYL 100 MCG/2 ML VIAL IVP ONE (12:00)
[2017-07-03] MEDS ORDERED: ACETAMINOPHEN 1,000 MG/100 ML 100 ML IV ONE (12:00)
[2017-07-03] MEDS ORDERED: ONDANSETRON 4 MG/2 ML VIAL IVP ONE (12:00)
[2017-07-03] MEDS ORDERED: BUPIVACAINE 0.25% PF 30 ML VIAL SUBQ ONE (12:05)
--- NOTE | 2017-07-03 12:47 | OPERATIVE REPORT ---
Operative Report - General Procedure Date: 07/03/17 Planned Procedure: Incisional herniorrhaphy Pre-Op Diagnosis: Incisional hernia Procedure Performed: Incisional herniorrhaphy with mesh Post Op Diagnosis: Incisional hernia - Procedure Note Primary Surgeon: Parag Cantu MD Anesthesia Provider: Kristina Aguilar CRNA Anesthesia Technique: General LMA, Local (60 mL 1/4% marcaine) IV Fluids (mL): 600 Estimated Blood Loss (mL): 5 Complications: None. - Other Other Information/Narrative: OPERATIVE DESCRIPTION/REPORT: After verbal and written informed consent was obtained detailing the risks of infection, bleeding requiring transfusion with its risks, nerve injury, and , and after I met with the patient confirming the surgery and the site of the surgery, the patient was brought to the operative suite and placed supine on the operating table. Great care was taken to avoid pressure points to prevent pressure necrosis or nerve injury. Monitoring devices were applied along with TEDs and pneumatic compressive stockings (to prevent DVT). The patient received preoperative antibiotics for surgical prophylaxis. Kristina Aguilar sedated and anesthetized the patient for the entire procedure. The patient was prepped and draped in the usual sterile manner. With the patient draped my initials were clearly visible. A "time in" then confirmed that the patient was identified with 3 identifiers (name, date and medical record number), the history and physical was in the chart, the signed consent confirming the procedure was in the chart, the patient was in the correct position, the aforementioned prophylactic measures were in place or given, we had the correct personnel and equipment to complete the procedure and that anesthesia, surgery and nursing were given an opportunity to express any concerns. With the agreement of everyone in the room, we proceeded with the operation. An elliptical curvilinear midline incision was made overlying the mass excising the previous incision and dissection was carried down to the hernia sac using a combination of Metzenbaum scissors, scalpel, and mostly Bovie electrocautery. The sac was cleared of overlying adherent tissue, and the fascial defect was delineated. The fascia was cleared of any adherent tissue for a distance 1.5 cm from the defect. The sac was resected using a combination of Metzenbaum scissors and Bovie electrocautery. The defect was closed using Parietex Composite Ventral Patch (Ref#[id number], Lot#[id number], use by date 2021-05-06) sewing it in place using interrupted 2-0 PDS. The subcutaneous tissues were copiously irrigated, and then closed using an interrupted 2-0 Vicryl. Meticulous hemostasis was obtained using Bovie electrocautery. The skin incision was approximated with a running 4-0 Monocryl. At this point a time out was performed that confirmed that all the counts were correct, the procedure that was performed, the blood loss, the IV fluids administered, and the patient s condition. Having tolerated the procedure well, the patient was subsequently extubated and taken to recovery room in good and stable condition.
[2017-07-03] MEDS ORDERED: HYDROcod/ACETAM 5/325 MG TABLET ONE (13:56)
[2017-07-03 14:30] VITALS: BP 154/93
== END 2017-07-03 08:30 | disposition home or self-care (01) ==
LOC: SDS 08:29
PROVIDERS: ATTEND Surgery
PROC: 0WUF0JZ Supplement Abdominal Wall with Synthetic Substitute, Open Approach (ICD-10-PCS; principal; 2017-07-03 09:45)
DX: K43.2 Incisional hernia without obstruction or gangrene (principal); I10 Essential (primary) hypertension; E78.5 Hyperlipidemia, unspecified; F41.9 Anxiety disorder, unspecified; Z87.891 Personal history of nicotine dependence
CPT/HCPCS: 49560; 49568; A9270; C1781; J0131; J0690; J7120

== ENCOUNTER 2017-07-26 09:00 | Outpatient (CLI) | payer MEDICARE, OTHER ==
[2017-07-26 18:57] LABS: CREATININE 1.2 mg/dL (0.6-1.2)
== END 2017-07-26 09:01 | disposition home or self-care (01) ==
LOC: LAB.N 09:00
PROVIDERS: ATTEND Internal Medicine Cardiovascular Disease
DX: I50.22 Chronic systolic (congestive) heart failure (principal)
CPT/HCPCS: 36415; 80048

== ENCOUNTER 2017-08-29 09:00 | Outpatient (CLI) | payer MEDICARE, OTHER ==
[2017-08-29 19:14] LABS: ALBUMIN 3.9 g/dL (3.2-5.5); ALBUMIN/GLOBULIN RATIO 1.4 (1.0-2.2); BILIRUBIN,TOTAL 0.5 mg/dL (0.2-1.0); CALCIUM 8.8 mg/dL (8.5-10.3); CREATININE 1.4 mg/dL (0.6-1.2); TOTAL PROTEIN 6.7 g/dL (6.7-8.2)
== END 2017-08-29 09:01 | disposition home or self-care (01) ==
LOC: LAB.N 09:00
PROVIDERS: ATTEND Internal Medicine Cardiovascular Disease
DX: Z79.899 Other long term (current) drug therapy (principal)
CPT/HCPCS: 36415; 80053; 84443

== ENCOUNTER 2017-09-19 14:08 | Outpatient (CLI) | payer MEDICARE, OTHER ==
[2017-09-19 19:34] LABS: CALCIUM 8.9 mg/dL (8.5-10.3); CREATININE 1.3 mg/dL (0.6-1.2)
== END 2017-09-19 14:09 ==
LOC: LAB.N 14:08
PROVIDERS: ATTEND Internal Medicine Cardiovascular Disease
DX: R79.89 Other specified abnormal findings of blood chemistry (principal)
CPT/HCPCS: 36415; 80048

== ENCOUNTER 2017-09-28 11:29 | Outpatient (CLI) | payer MEDICARE, OTHER ==
[2017-09-28 19:11] LABS: ALBUMIN/GLOBULIN RATIO 1.3 (1.0-2.2); BASOPHILS % (AUTO) 0.6 %; BILIRUBIN,TOTAL 0.7 mg/dL (0.2-1.0); CALCIUM 8.8 mg/dL (8.5-10.3); CREATININE 1.5 mg/dL (0.6-1.2); EOSINOPHILS # (AUTO) 0.1 10^3/uL (0.0-0.7); EOSINOPHILS % (AUTO) 1.8 %; HGB - HEMOGLOBIN 11.5 g/dL (14.0-18.0); LYMPHOCYTES # (AUTO) 0.9 10^3/uL (1.5-3.5); LYMPHOCYTES % (AUTO) 16.7 %; MEAN CORPUSCULAR VOLUME 97.2 fL (80.0-94.0); MEAN PLATELET VOLUME 7.7 fL (7.4-11.4); MONOCYTES # (AUTO) 0.5 10^3/uL (0.0-1.0); MONOCYTES % (AUTO) 8.4 %; NEUTROPHILS # (AUTO) 3.9 10^3/uL (1.5-6.6); NEUTROPHILS % (AUTO) 72.5 %; PLT - PLATELET COUNT 342 10^3/uL (130-450); RED BLOOD COUNT 3.58 10^6/uL (4.70-6.10); RED CELL DISTRIBUTION WIDTH 16.9 % (12.0-15.0); WHITE BLOOD COUNT 5.4 x10^3/uL (4.8-10.8)
== END 2017-09-28 11:30 | disposition home or self-care (01) ==
LOC: LAB.N 11:29
PROVIDERS: ATTEND Family Medicine
DX: R53.83 Other fatigue (principal); K52.9 Noninfective gastroenteritis and colitis, unspecified
CPT/HCPCS: 36415; 80053; 82150; 83690; 84443; 85025; 85651

== ENCOUNTER 2017-09-29 23:30 | Outpatient (CLI) | payer MEDICARE, OTHER | END 2017-09-29 23:31 | disposition home or self-care (01) | LOC: LAB.R 23:30 | PROVIDERS: ATTEND Family Medicine | DX: K52.9 Noninfective gastroenteritis and colitis, unspecified (principal) | CPT/HCPCS: 82274; 83630; 87045; 87046; 87177; 87209; 87493 ==

== ENCOUNTER 2017-09-30 23:30 | Outpatient (CLI) | payer MEDICARE, OTHER | END 2017-09-30 23:31 | disposition home or self-care (01) | LOC: LAB.R 23:30 | PROVIDERS: ATTEND Family Medicine | DX: Z53.9 Procedure and treatment not carried out, unspecified reason (principal) | CPT/HCPCS: 87177; 87209 ==

== ENCOUNTER 2017-10-01 23:30 | Outpatient (CLI) | payer MEDICARE, OTHER | END 2017-10-01 23:31 | disposition home or self-care (01) | LOC: LAB 23:30 | PROVIDERS: ATTEND Family Medicine | DX: Z53.9 Procedure and treatment not carried out, unspecified reason (principal) | CPT/HCPCS: 87177; 87209 ==

== ENCOUNTER 2017-10-12 18:46 | Outpatient (CLI) | payer MEDICARE, OTHER | END 2017-10-12 18:47 | disposition critical access hospital (66) | LOC: EMS 18:46 | PROVIDERS: ATTEND Surgery | DX: R55 Syncope and collapse (principal) | CPT/HCPCS: A0425; A0427 ==

== ENCOUNTER 2017-10-12 19:18 | Emergency (ER) | payer MEDICARE, OTHER ==
[2017-10-12 20:01] LABS: BASOPHILS % (AUTO) 0.6 %; EOSINOPHILS # (AUTO) 0.1 10^3/uL (0.0-0.7); EOSINOPHILS % (AUTO) 1.8 %; HGB - HEMOGLOBIN 10.1 g/dL (14.0-18.0); LYMPHOCYTES # (AUTO) 0.8 10^3/uL (1.5-3.5); LYMPHOCYTES % (AUTO) 14.1 %; MEAN CORPUSCULAR HEMOGLOBIN 34.1 pg (27.0-31.0); MEAN CORPUSCULAR HGB CONC 34.2 g/dL (32.0-36.0); MEAN CORPUSCULAR VOLUME 99.8 fL (80.0-94.0); MEAN PLATELET VOLUME 6.8 fL (7.4-11.4); MONOCYTES # (AUTO) 0.6 10^3/uL (0.0-1.0); NEUTROPHILS # (AUTO) 4.3 10^3/uL (1.5-6.6); NEUTROPHILS % (AUTO) 73.5 %; PLT - PLATELET COUNT 247 10^3/uL (130-450); RED BLOOD COUNT 2.98 10^6/uL (4.70-6.10); RED CELL DISTRIBUTION WIDTH 16.6 % (12.0-15.0); WHITE BLOOD COUNT 5.9 x10^3/uL (4.8-10.8)
[2017-10-12 20:16] LABS: ALBUMIN 3.3 g/dL (3.2-5.5); ALBUMIN/GLOBULIN RATIO 1.2 (1.0-2.2); BILIRUBIN,TOTAL 0.5 mg/dL (0.2-1.0); CALCIUM 8.1 mg/dL (8.5-10.3); CREATININE 1.5 mg/dL (0.6-1.2); TOTAL PROTEIN 6.1 g/dL (6.7-8.2)
--- NOTE | 2017-10-12 20:32 | ED Physician Documentation ---
PD HPI SYNCOPE - Stated complaint Stated Complaint: SYNCOPE - Chief complaint Chief Complaint: Neuro - History obtained from History obtained from: Patient, Family - History of Present Illness Witnessed: Witnessed Timing - onset: Today Duration: Minutes Preceding symptoms: Light headed Contributing factors: Just stood up Injury occurred: No: Fell, Head injury Similar symptoms before: Work up / diagnostics Recently seen: Not recently seen - Additional information Additional information: Patient is a 77 year old male presenting to the emergency department for a syncopal episode. patient states that he was sitting on the couch, and he suddenly got up and felt light headed. Patient states that he drank a bit of coffee this morning and didn't drink much water today. Patient also states that he had wine with dinner. Upon initial evaluation in the emergency department patient states that he is asymptomatic. Review of Systems Constitutional: denies: Fever, Chills, Myalgias Eyes: denies: Decreased vision Nose: denies: Congestion Cardiac: denies: Chest pain / pressure Respiratory: denies: Dyspnea, Cough GI: denies: Nausea, Vomiting Immunocompromised: denies: Immunocompromised PD PAST MEDICAL HISTORY - Past Medical History Cardiovascular: Congestive heart failure, Hypertension, High cholesterol, Arrhythmia, Other Respiratory: Emphysema Endocrine/Autoimmune: None GI: Colon polyps, Other : Benign prostate hypertrophy, Renal insuffiency HEENT: Chronic vision loss, Chronic hearing loss Psych: None Musculoskeletal: Osteoarthritis, Gout Derm: Eczema - Past Surgical History Past Surgical History: Yes General: Appendectomy, Bowel surgery, Colonoscopy, Other Ortho: Knee replacement, Other Cardiovascular: AICD, Cardiac catheterization HEENT: Cataracts, Tonsil/Adenoidectomy - Present Medications Home Medications: Ambulatory Orders Medication Instructions Recorded Confirmed Amiodarone [Pacerone] 100 mg PO DAILY 03/02/17 08/06/17 Aspirin [Aspirin EC] 81 mg PO DAILY 07/02/17 08/06/17 Carvedilol 3.125 mg PO BID 07/02/17 08/06/17 Furosemide 20 mg PO DAILY 07/02/17 08/06/17 Lisinopril 2.5 mg PO BID 07/02/17 08/06/17 Diphenoxylate/Atropine [Lomotil] 1 tab PO DAILY PRN 08/06/17 08/06/17 - Allergies Allergies/Adverse Reactions: Allergies Allergy/AdvReac Type Severity Reaction Status Date / Time No Known Drug Allergies Allergy Verified 10/12/17 19:26 - Social History Does the pt smoke?: No Smoking Status: Never smoker - POLST Patient has POLST: No POLST Status: Full Code PD ED PE NORMAL - Vitals Vital signs reviewed: Yes - General General: Alert and oriented X 3 - HEENT HEENT: Atraumatic - Cardiac Cardiac: RRR, No murmur - Respiratory Respiratory: No respiratory distress - Derm Derm: Normal color, Warm and dry - Extremities Extremities: No deformity - Neuro Neuro: Alert and oriented X 3, No motor deficit, Normal speech Eye Opening: Spontaneous Motor: Obeys Commands Verbal: Oriented GCS Score: 15 Results - Vitals Vitals: Vital Signs - 24 hr 10/12/17 10/12/17 10/12/17 19:21 19:48 20:43 Temperature 36.8 C 36.6 C Heart Rate 58 L 60 59 L Respiratory 16 16 18 Rate Blood Pressure 121/80 122/74 142/80 H O2 Saturation 98 98 100 Oxygen O2 Source [] Room air O2 Source Room air - EKG (time done) 1937 Rate: Rate (enter#) (60) Rhythm: Paced Ischemia: ST depression Compare to prior EKG: Unchanged from prior EKG - Labs Labs: Laboratory Tests 10/12/17 10/12/17 10/12/17 19:55 19:55 19:55 WBC 5.9 RBC 2.98 L Hgb 10.1 L Hct 29.7 L MCV 99.8 H MCH 34.1 H MCHC 34.2 RDW 16.6 H Plt Count 247 MPV 6.8 L Neut # (Auto) 4.3 Lymph # (Auto) 0.8 L [place] # (Auto) 0.6 Eos # (Auto) 0.1 Baso # (Auto) 0.0 Absolute Nucleated RBC 0.00 Nucleated RBC % 0.0 Sodium 135 Potassium 3.5 Chloride 105 Carbon Dioxide 22 Anion Gap 8.0 BUN 31 H Creatinine 1.5 H Estimated GFR (MDRD) 45 L Glucose 85 Calcium 8.1 L Total Bilirubin 0.5 AST 20 ALT 12 Alkaline Phosphatase 53 Troponin I < 0.04 B-Natriuretic Peptide Total Protein 6.1 L Albumin 3.3 Globulin 2.8 Albumin/Globulin Ratio 1.2 Lipase 24 Ethyl Alcohol 10/12/17 10/12/17 19:55 19:55 WBC RBC Hgb Hct MCV MCH MCHC RDW Plt Count MPV Neut # (Auto) Lymph # (Auto) [place] # (Auto) Eos # (Auto) Baso # (Auto) Absolute Nucleated RBC Nucleated RBC % Sodium Potassium Chloride Carbon Dioxide Anion Gap BUN Creatinine Estimated GFR (MDRD) Glucose Calcium Total Bilirubin AST ALT Alkaline Phosphatase Troponin I B-Natriuretic Peptide 43 Total Protein Albumin Globulin Albumin/Globulin Ratio Lipase Ethyl Alcohol < 5.0 PD MEDICAL DECISION MAKING - ED course Complexity details: reviewed old records, reviewed results, re-evaluated patient , considered differential, d/w patient, d/w family ED course: Patient was seen and examined at bedside. Patient was well appearing. ekg was performed and was unchanged from previous. Patient's diagnostics were within normal limits. Patient was at moderately high risk for poor outcomes with syncope but his hpi is more consistent with vasovagal syncope. Patient stated that he wanted to go home even though he was offered admission. patient and family understood the risks and were given detailed discharge and follow up instructions. Patient required no further work up and was stable for discharge with outpatient follow up. - Sepsis Event Vital Signs: Vital Signs - 24 hr 10/12/17 10/12/17 10/12/17 19:21 19:48 20:43 Temperature 36.8 C 36.6 C Heart Rate 58 L 60 59 L Respiratory 16 16 18 Rate Blood Pressure 121/80 122/74 142/80 H O2 Saturation 98 98 100 Oxygen O2 Source [] Room air O2 Source Room air Departure - Departure Disposition: 01 Home, Self Care Clinical Impression: Syncope Condition: Good Instructions: ED Syncope Vasovagal Follow-Up: Jayjay Busby MD [Primary Care Provider] - Comments: Your diagnostics today were within normal limits. There were no major abnormalities. That being said with your prior history you are at a much higher risk. I understand you would like to go home but it is imperative that you return for chest pain, shortness of breath, fevers, sweats or another syncopal episode. It is also important that you stay well hydrated. Discharge Date/Time: 10/12/17 20:43
[2017-10-12 20:43] VITALS: BP 142/80
== END 2017-10-12 20:43 | disposition home or self-care (01) ==
LOC: EDUNIT# → ED 19:18
DX: R55 Syncope and collapse (principal); I11.0 Hypertensive heart disease with heart failure; I50.9 Heart failure, unspecified; E78.00 Pure hypercholesterolemia, unspecified; I49.9 Cardiac arrhythmia, unspecified; J44.9 Chronic obstructive pulmonary disease, unspecified; N40.0 Benign prostatic hyperplasia without lower urinary tract symptoms; M19.90 Unspecified osteoarthritis, unspecified site; M10.9 Gout, unspecified; Z79.82 Long term (current) use of aspirin; Z95.810 Presence of automatic (implantable) cardiac defibrillator
CPT/HCPCS: 36415; 80053; 83690; 83880; 84484; 85025; 93005; 99283; 99284; G0480; 80320

== ENCOUNTER 2017-10-21 | Outpatient (CLI) | END 2017-10-21 11:54 | disposition short-term general hospital (02) | CPT/HCPCS: A0425; A0427 ==

== ENCOUNTER 2017-10-31 18:19 | Outpatient (CLI) | payer MEDICARE, OTHER | END 2017-10-31 18:20 | disposition short-term general hospital (02) | LOC: EMS 18:19 | PROVIDERS: ATTEND Surgery | DX: R07.9 Chest pain, unspecified (principal) | CPT/HCPCS: A0425; A0427 ==

== ENCOUNTER 2017-11-14 13:06 | Outpatient (CLI) | payer MEDICARE, OTHER ==
[2017-11-14 19:15] LABS: BASOPHILS % (AUTO) 0.2 %; EOSINOPHILS # (AUTO) 0.1 10^3/uL (0.0-0.7); EOSINOPHILS % (AUTO) 0.6 %; HGB - HEMOGLOBIN 12.1 g/dL (14.0-18.0); LYMPHOCYTES % (AUTO) 9.2 %; MEAN CORPUSCULAR HEMOGLOBIN 34.9 pg (27.0-31.0); MEAN CORPUSCULAR HGB CONC 33.9 g/dL (32.0-36.0); MEAN CORPUSCULAR VOLUME 102.8 fL (80.0-94.0); MEAN PLATELET VOLUME 7.4 fL (7.4-11.4); MONOCYTES % (AUTO) 9.5 %; NEUTROPHILS # (AUTO) 8.7 10^3/uL (1.5-6.6); NEUTROPHILS % (AUTO) 80.5 %; PLT - PLATELET COUNT 378 10^3/uL (130-450); RED BLOOD COUNT 3.47 10^6/uL (4.70-6.10); RED CELL DISTRIBUTION WIDTH 14.3 % (12.0-15.0); WHITE BLOOD COUNT 10.9 x10^3/uL (4.8-10.8)
[2017-11-14 19:35] LABS: ALBUMIN 3.2 g/dL (3.2-5.5); ALBUMIN/GLOBULIN RATIO 0.9 (1.0-2.2); BILIRUBIN,TOTAL 0.5 mg/dL (0.2-1.0); CALCIUM 8.2 mg/dL (8.5-10.3); CREATININE 1.9 mg/dL (0.6-1.2); TOTAL PROTEIN 6.6 g/dL (6.7-8.2)
== END 2017-11-14 13:07 | disposition home or self-care (01) ==
LOC: LAB.N 13:06
PROVIDERS: ATTEND Family Medicine
DX: K52.9 Noninfective gastroenteritis and colitis, unspecified (principal)
CPT/HCPCS: 36415; 80053; 85025; 85651

== ENCOUNTER 2018-03-21 10:47 | Outpatient (CLI) | payer MEDICARE, OTHER ==
[2018-03-21 19:45] LABS: ALBUMIN 3.7 g/dL (3.2-5.5); ALBUMIN/GLOBULIN RATIO 1.2 (1.0-2.2); BILIRUBIN,TOTAL 0.6 mg/dL (0.2-1.0); CALCIUM 8.5 mg/dL (8.5-10.3); CREATININE 1.4 mg/dL (0.6-1.2); TOTAL PROTEIN 6.9 g/dL (6.7-8.2)
== END 2018-03-21 10:48 | disposition home or self-care (01) ==
LOC: LAB.N 10:47
PROVIDERS: ATTEND Internal Medicine Cardiovascular Disease
DX: I42.8 Other cardiomyopathies (principal); Z79.899 Other long term (current) drug therapy
CPT/HCPCS: 36415; 80053; 84443

== ENCOUNTER 2018-05-20 09:17 | Outpatient (CLI) | payer MEDICARE, OTHER ==
[2018-05-20 10:03] LABS: CALCIUM 8.8 mg/dL (8.5-10.3); CREATININE 1.3 mg/dL (0.6-1.2)
== END 2018-05-20 09:18 | disposition home or self-care (01) ==
LOC: LAB 09:17
PROVIDERS: ATTEND Internal Medicine Cardiovascular Disease
DX: I50.22 Chronic systolic (congestive) heart failure (principal)
CPT/HCPCS: 36415; 80048

== ENCOUNTER 2018-07-05 10:57 | Outpatient (CLI) | payer MEDICARE, OTHER ==
[2018-07-05 19:24] LABS: THYROID STIMULATING HORMONE 2.11 uIU/mL (0.34-5.60)
== END 2018-07-05 23:59 | disposition home or self-care (01) ==
LOC: LAB.N 10:57
DX: F03.90 Unspecified dementia, unspecified severity, without behavioral disturbance, psychotic disturbance, mood disturbance, and anxiety (principal)
CPT/HCPCS: 36415; 81599; 82607; 84443; 86592

== ENCOUNTER 2018-11-06 08:43 | Outpatient (CLI) | payer MEDICARE, OTHER ==
[2018-11-06 12:41] LABS: ALBUMIN 3.7 g/dL (3.2-5.5); ALBUMIN/GLOBULIN RATIO 1.2 (1.0-2.2); BILIRUBIN,TOTAL 0.6 mg/dL (0.2-1.0); CALCIUM 8.9 mg/dL (8.5-10.3); CREATININE 1.3 mg/dL (0.6-1.2); TOTAL PROTEIN 6.9 g/dL (6.7-8.2)
== END 2018-11-06 08:44 | disposition home or self-care (01) ==
LOC: LAB.N 08:43
PROVIDERS: ATTEND Internal Medicine Cardiovascular Disease
DX: I10 Essential (primary) hypertension (principal)
CPT/HCPCS: 36415; 80053; 84443

== ENCOUNTER 2019-02-10 14:22 | Outpatient (CLI) | payer MEDICARE, OTHER ==
--- NOTE | 2019-02-11 14:17 | XRAY Report ---
Reason: AMIODARONE Procedure Date: 02/10/2019 Accession Number: [id number] / [id number] Procedure: XRN - Chest 2 View X-Ray CPT Code: 95610 FULL RESULT: EXAM: CHEST RADIOGRAPHY EXAM DATE: 02/10/2019 02:39 PM. CLINICAL HISTORY: AMIODARONE. COMPARISON: CHEST 2 VIEW 06/06/2017 11:11 AM ABDOMEN/PELVIS W/ 01/27/2019 7:49 AM. TECHNIQUE: 2 views. FINDINGS: Lungs/Pleura: No focal opacities evident. No pleural effusion. No pneumothorax. Normal volumes. Calcified posterior left lower lobe granuloma. Mediastinum: Tortuous thoracic aorta. Left subclavian AICD. Other: Mild thoracic spine degenerative changes. IMPRESSION: 1. No evidence for interstitial lung disease. [facility]
== END 2019-02-10 14:23 | disposition home or self-care (01) ==
LOC: DI.N 14:22
PROVIDERS: ATTEND Internal Medicine Cardiovascular Disease
DX: Z79.899 Other long term (current) drug therapy (principal)
CPT/HCPCS: 71046